=== PATIENT | male | born 1975 | race Caucasian/White ===

== ENCOUNTER 2016-12-28 18:38 | Inpatient (IN) | payer OTHER ==
[~2016-12-28] VITALS: Ht 172.7 cm; Wt 66.0 kg
[~2016-12-28 18:38] MED LIST: CYCLOBENZAPRINE5 MG PO; GLU10 PO; HUMULIN R100 U/1 M1 SC; LAC PO; LEVAQUIN250 MG PO; LEVAQUIN750 MG PO; LEVEMIR100 U/M1 SQ; METFORMIN HCL1000 MG PO; NEU300 PO
[2016-12-28 19:48] LABS: PLATELET COUNT 310 x10^3mcL (130-400); RED CELL DISTRIBUTION WIDTH 13.2 % (11.5-14.5)
[2016-12-28 19:58] LABS: ALBUMIN 3.7 g/dL (3.4-5.0); BILIRUBIN TOTAL 0.7 mg/dL (0.20-1.00); CALCIUM 7.6 mg/dL (8.5-10.1); CREATININE SERUM 2.4 mg/dL (0.7-1.3); TOTAL PROTEIN, SERUM 6.7 g/dL (6.4-8.2)
[2016-12-28 20:00] LABS: BAND NEUTROPHIL 2 % (0-10); BASOPHIL 0 % (0-2); MONOCYTE 6 % (0-7); SEGMENTED NEUTROPHILS 84 % (37-75); rbc morphology (normal/abnorm) ABNORMAL (NORMAL)
[2016-12-28 20:03] LABS: POTASSIUM SERUM 7.6 mmol/L (3.5-5.1)
[2016-12-28 20:08] LABS: CK-MB 21.4 ng/mL (0-3.6)
[2016-12-28 20:29] LABS: CARBON DIOXIDE 6.4 mmol/L (21-32)
[2016-12-28 22:22] LABS: UA SPECIFIC GRAVITY 1.015 (1.005-1.035); microscopic required? YES; urine erythrocyte 3+ (NEGATIVE)
[2016-12-28 22:25] LABS: AMPHETAMINE QUAL UR NONE DETECTED (NEG <=1000)
[2016-12-28 22:33] LABS: CHOLESTEROL/HDL RATIO 4.1
[2016-12-28 22:42] LABS: FREE THYROXINE INDEX 1.9 ug/dL (1.4-4.5); T3 TOTAL 0.33 ng/mL; T4(THYROXINE) 5.2 ug/dL (4.7-13.3)
[2016-12-28 23:00] LABS: ALBUMIN 3.4 g/dL (3.4-5.0); BILIRUBIN TOTAL 0.7 mg/dL (0.20-1.00); CALCIUM 7.5 mg/dL (8.5-10.1); CREATININE SERUM 2.2 mg/dL (0.7-1.3)
[2016-12-28 23:16] LABS: TOTAL PROTEIN, SERUM 6.1 g/dL (6.4-8.2)
[2016-12-28 23:28] LABS: MAGNESIUM 2.3 mg/dL (1.8-2.4); PHOSPHOROUS 6.3 mg/dL (2.5-4.9)
[2016-12-28 23:41] LABS: CARBON DIOXIDE 5.4 mmol/L (21-32)
[2016-12-29 03:00] VITALS: BP 121/74
[2016-12-29 03:11] VITALS: BP 122/56
[2016-12-29 03:34] LABS: BASOPHIL % 0.2 % (0-2); PLATELET COUNT 274 x10^3mcL (130-400); RED CELL DISTRIBUTION WIDTH 12.4 % (11.5-14.5)
[2016-12-29 03:40] LABS: CALCIUM 7.8 mg/dL (8.5-10.1); CARBON DIOXIDE 10.1 mmol/L (21-32); CREATININE SERUM 1.8 mg/dL (0.7-1.3); MAGNESIUM 1.9 mg/dL (1.8-2.4); PHOSPHOROUS 2.9 mg/dL (2.5-4.9); POTASSIUM SERUM 4.3 mmol/L (3.5-5.1)
[2016-12-29 07:20] VITALS: BP 124/73
[2016-12-29 07:20] LABS: CALCIUM 7.5 mg/dL (8.5-10.1); CARBON DIOXIDE 19.8 mmol/L (21-32); CREATININE SERUM 1.5 mg/dL (0.7-1.3); MAGNESIUM 1.7 mg/dL (1.8-2.4); PHOSPHOROUS 1.5 mg/dL (2.5-4.9); POTASSIUM SERUM 3.7 mmol/L (3.5-5.1)
[2016-12-29 07:42] VITALS: Ht 172.7 cm; Wt 66.0 kg
[2016-12-29 11:30] VITALS: BP 105/61
[2016-12-29 12:11] LABS: CALCIUM 7.4 mg/dL (8.5-10.1); CARBON DIOXIDE 26.2 mmol/L (21-32); CREATININE SERUM 1.4 mg/dL (0.7-1.3); POTASSIUM SERUM 3.7 mmol/L (3.5-5.1)
[2016-12-29 15:29] LABS: CALCIUM 7.5 mg/dL (8.5-10.1); CARBON DIOXIDE 26.5 mmol/L (21-32); CHLORIDE SERUM 102 mmol/L (98-107); CREATININE SERUM 1.2 mg/dL (0.7-1.3); GFR1 > 60 mL/min; GLUCOSE SERUM 142 mg/dL (74-106); POTASSIUM SERUM 3.6 mmol/L (3.5-5.1); SODIUM SERUM 135 mmol/L (136-145)
[2016-12-29 16:00] VITALS: BP 114/64
[2016-12-29 20:00] VITALS: BP 111/60
[2016-12-30] VITALS (10 sets, daily range): BP systolic 115–132; BP diastolic 59–82
[2016-12-30 05:07] LABS: CALCIUM 7.6 mg/dL (8.5-10.1); CARBON DIOXIDE 28.7 mmol/L (21-32); CHLORIDE SERUM 104 mmol/L (98-107); GFR1 > 60 mL/min; GLUCOSE SERUM 76 mg/dL (74-106); MAGNESIUM 1.9 mg/dL (1.8-2.4); PHOSPHOROUS 1.8 mg/dL (2.5-4.9); POTASSIUM SERUM 3.5 mmol/L (3.5-5.1); SODIUM SERUM 138 mmol/L (136-145)
[2016-12-30 05:08] LABS: BASOPHIL % 0.3 % (0-2); PLATELET COUNT 209 x10^3mcL (130-400); RED CELL DISTRIBUTION WIDTH 13.2 % (11.5-14.5)
[2016-12-31 05:55] LABS: BASOPHIL % 0.4 % (0-2); PLATELET COUNT 176 x10^3mcL (130-400); RED CELL DISTRIBUTION WIDTH 13.4 % (11.5-14.5)
[2016-12-31 06:08] LABS: CALCIUM 7.6 mg/dL (8.5-10.1); CARBON DIOXIDE 30.8 mmol/L (21-32); CHLORIDE SERUM 103 mmol/L (98-107); CREATININE SERUM 0.8 mg/dL (0.7-1.3); GFR1 > 60 mL/min; GLUCOSE SERUM 170 mg/dL (74-106); PHOSPHOROUS 2.3 mg/dL (2.5-4.9); POTASSIUM SERUM 3.3 mmol/L (3.5-5.1); SODIUM SERUM 139 mmol/L (136-145)
[2016-12-31 06:11] LABS: ALBUMIN 2.7 g/dL (3.4-5.0)
[2016-12-31 06:19] VITALS: BP 117/67
[2016-12-31 10:23] VITALS: BP 117/75
[2016-12-31 18:17] VITALS: BP 124/79
[2016-12-31 20:28] VITALS: BP 131/79
[2017-01-01 05:31] VITALS: BP 136/82
[2017-01-01 05:39] LABS: BASOPHIL % 0.6 % (0-2); PLATELET COUNT 194 x10^3mcL (130-400); RED CELL DISTRIBUTION WIDTH 13.3 % (11.5-14.5)
[2017-01-01 05:57] LABS: CALCIUM 8.2 mg/dL (8.5-10.1); CARBON DIOXIDE 30.9 mmol/L (21-32); CHLORIDE SERUM 106 mmol/L (98-107); CREATININE SERUM 0.7 mg/dL (0.7-1.3); GFR1 > 60 mL/min; GLUCOSE SERUM 108 mg/dL (74-106); PHOSPHOROUS 3.5 mg/dL (2.5-4.9); POTASSIUM SERUM 3.7 mmol/L (3.5-5.1); SODIUM SERUM 144 mmol/L (136-145)
[2017-01-01 09:44] VITALS: BP 132/80
[2017-01-01] MEDS ORDERED: METFORMIN HCL1000 MG PO (14:44)
[2017-01-01] MEDS ORDERED: THERA TABS1 TAB PO (14:45)
[2017-01-01] MEDS ORDERED: BACTROBAN21 (14:50)
[2017-01-01] MEDS ORDERED: HIB240 TP (14:50)
[2017-01-01 15:17] VITALS: BP 132/80
== END 2017-01-01 15:48 | disposition home or self-care (01) | DRG 420 ==
LOC: ED 18:38 → IC 12-29 00:13 → DU 12-29 00:13 → MU 12-29 00:13 → IC 12-29 00:18 → DU 12-30 13:56 → MU 12-30 21:19
PROVIDERS: Emergency Medicine; Family Medicine; ADMIT Family Medicine
PROC: 05HM33Z Insertion of Infusion Device into Right Internal Jugular Vein, Percutaneous Approach (ICD-10-PCS; principal; 2016-12-29)
PROC: B543ZZA Ultrasonography of Right Jugular Veins, Guidance (ICD-10-PCS; 2016-12-29)
DX: E13.10 Other specified diabetes mellitus with ketoacidosis without coma (principal); N17.0 Acute kidney failure with tubular necrosis; E43 Unspecified severe protein-calorie malnutrition; K85.90 Acute pancreatitis without necrosis or infection, unspecified; M62.82 Rhabdomyolysis; E87.8 Other disorders of electrolyte and fluid balance, not elsewhere classified; E83.39 Other disorders of phosphorus metabolism; E87.5 Hyperkalemia; E87.1 Hypo-osmolality and hyponatremia; F12.10 Cannabis abuse, uncomplicated; E78.1 Pure hyperglyceridemia; R31.9 Hematuria, unspecified; Z79.4 Long term (current) use of insulin; Z68.22 Body mass index [BMI] 22.0-22.9, adult; Z79.84 Long term (current) use of oral hypoglycemic drugs; Z91.14 Patient's other noncompliance with medication regimen; K52.9 Noninfective gastroenteritis and colitis, unspecified; E11.65 Type 2 diabetes mellitus with hyperglycemia; E11.51 Type 2 diabetes mellitus with diabetic peripheral angiopathy without gangrene; R82.4 Acetonuria; E87.6 Hypokalemia; E83.51 Hypocalcemia; E02 Subclinical iodine-deficiency hypothyroidism; Z83.3 Family history of diabetes mellitus; Z82.49 Family history of ischemic heart disease and other diseases of the circulatory system; F17.210 Nicotine dependence, cigarettes, uncomplicated
CPT/HCPCS: 36556; 36600; 80307; 83880; 84439; G0480; J1642; J1815; J2060; J2405; J2543; J3475; J3490; J7030; J7040; Q0092

== ENCOUNTER 2017-04-27 00:13 | Emergency (ER) | payer OTHER ==
[~2017-04-27 00:13] MED LIST changes: +BACTROBAN21; +HIB240 TP; +THERA TABS1 TAB PO
[2017-04-27 00:49] LABS: BASOPHIL % 1.4 % (0-2); PLATELET COUNT 238 x10^3mcL (130-400); RED CELL DISTRIBUTION WIDTH 13.2 % (11.5-14.5)
[2017-04-27 01:03] LABS: CALCIUM 8.4 mg/dL (8.5-10.1); CARBON DIOXIDE 24.3 mmol/L (21-32); CHLORIDE SERUM 100 mmol/L (98-107); CREATININE SERUM 1.1 mg/dL (0.7-1.3); GFR1 > 60 mL/min; GLUCOSE SERUM 278 mg/dL (74-106); POTASSIUM SERUM 4.2 mmol/L (3.5-5.1); SODIUM SERUM 138 mmol/L (136-145)
[2017-04-27 01:08] LABS: ALBUMIN 3.6 g/dL (3.4-5.0); ALKALINE PHOSPHATASE 79 U/L (46-116); ALT/SGPT 30 U/L (16-63); AMYLASE 34 U/L (25-115); AST/SGOT 20 U/L (15-37); BILIRUBIN TOTAL 0.92 mg/dL (0.20-1.00); LIPASE 70 IU/L (73-393); TOTAL PROTEIN, SERUM 7.3 g/dL (6.4-8.2)
[2017-04-27 01:36] LABS: microscopic required? YES; urine erythrocyte NEGATIVE (NEGATIVE)
[2017-04-27 01:41] LABS: AMPHETAMINE QUAL UR NONE DETECTED (NEG <=1000)
[2017-04-27 03:55] VITALS: BP 131/75
== END 2017-04-27 03:55 | disposition home or self-care (01) ==
LOC: ED 00:13
PROVIDERS: Emergency Medicine
DX: B34.9 Viral infection, unspecified (principal); E11.43 Type 2 diabetes mellitus with diabetic autonomic (poly)neuropathy; K31.84 Gastroparesis; Z79.4 Long term (current) use of insulin; Z79.84 Long term (current) use of oral hypoglycemic drugs; E11.40 Type 2 diabetes mellitus with diabetic neuropathy, unspecified
CPT/HCPCS: 83880; J1885; J2765; J7030; J8597

== ENCOUNTER 2017-04-27 22:57 | Inpatient (IN) | payer OTHER ==
[~2017-04-27] VITALS: Ht 170.2 cm; Wt 66.0 kg
--- NOTE | 2017-04-27 23:06 | NUR ---
REC'D A 41/M IN RM 8 BIBA WITH C/O VOMITING SINCE THE MORNING. [place] [facility] [place]IL[place]. HX OF DM. PER MEDIC, WITNESSED POSTURAL HTN, BLOOD GLUCOSE 262. PT AAOX4, RESP EVEN AND UNLABORED. ON CM. CALL LIGHT WITHIN REACH, WILL CONTINUE TO MONITOR.
[2017-04-27 23:47] LABS: BASOPHIL % 0.2 % (0-2); PLATELET COUNT 249 x10^3mcL (130-400); RED CELL DISTRIBUTION WIDTH 13.2 % (11.5-14.5)
[2017-04-28] VITALS (7 sets, daily range): BP systolic 104–148; BP diastolic 62–91
[2017-04-28 00:11] LABS: CARBON DIOXIDE 21.2 mmol/L (21-32); CHLORIDE SERUM 97 mmol/L (98-107); CREATININE SERUM 1.1 mg/dL (0.7-1.3); GFR1 > 60 mL/min; GLUCOSE SERUM 288 mg/dL (74-106); POTASSIUM SERUM 4.6 mmol/L (3.5-5.1); SODIUM SERUM 134 mmol/L (136-145)
[2017-04-28 00:16] LABS: ALBUMIN 3.4 g/dL (3.4-5.0); ALKALINE PHOSPHATASE 80 U/L (46-116); ALT/SGPT 24 U/L (16-63); AST/SGOT 15 U/L (15-37); BILIRUBIN TOTAL 1.2 mg/dL (0.20-1.00); LIPASE 64 IU/L (73-393)
--- NOTE | 2017-04-28 00:38 | NUR ---
ADMINISTERED 5 UNIT HUMULIN REGULAR. PLEASE SEE EMAR.
[2017-04-28 00:47] LABS: microscopic required? YES; urine erythrocyte NEGATIVE (NEGATIVE)
--- NOTE | 2017-04-28 01:41 | NUR ---
PT ASLEEP ON GURNEY, RESP EVEN AND UNLABORED. WILL CONTINUE TO MONITOR.
--- NOTE | 2017-04-28 01:50 | NUR ---
BLOOD GLUCOSE: 209. DR MCKNIGHT MADE AWARE.
[2017-04-28 02:34] LABS: CHOLESTEROL/HDL RATIO 2.7; MAGNESIUM 1.7 mg/dL (1.8-2.4); PHOSPHOROUS 3.4 mg/dL (2.5-4.9)
--- NOTE | 2017-04-28 02:35 | NUR ---
PT ASLEEP ON GURNEY, RESP EVEN AND UNLABORED. WILL CONTINUE TO MONITOR.
[2017-04-28 02:40] LABS: T3 TOTAL 0.4 ng/mL
[2017-04-28 02:48] LABS: FREE T4 1.37 ng/dL (0.76-1.46); FREE THYROXINE INDEX 3.1 ug/dL (1.4-4.5); T4(THYROXINE) 8.6 ug/dL (4.7-13.3)
--- NOTE | 2017-04-28 02:54 | NUR ---
DR MCKEE AT BEDSIDE FOR CENTRAL LINE INSERTION.
--- NOTE | 2017-04-28 03:19 | NUR ---
REPORT GIVEN TO ALESIA MUJICA TO ASSUME CARE OF THE PT.
--- NOTE | 2017-04-28 04:05 | NUR ---
PT ARRIVED FROM ER VIA [facility] ACCOMPANIED BY RHEUMATOLOGY SPECIALIST AND SIZE CHANGER. PT PUT ON MONITOR. WILL CONTINUE TO MONITOR.
[2017-04-28 04:13] LABS: CALCIUM 7.8 mg/dL (8.5-10.1); CARBON DIOXIDE 17.8 mmol/L (21-32); CHLORIDE SERUM 101 mmol/L (98-107); GFR1 > 60 mL/min; GLUCOSE SERUM 254 mg/dL (74-106); MAGNESIUM 1.4 mg/dL (1.8-2.4); PHOSPHOROUS 2.7 mg/dL (2.5-4.9); POTASSIUM SERUM 4.7 mmol/L (3.5-5.1); SODIUM SERUM 133 mmol/L (136-145)
--- NOTE | 2017-04-28 04:36 | NUR ---
PAGED DR SHEPHERD, AWAITING CALL BACK FOR FURTHER ORDERS PER DKA PROTOCOL.
--- NOTE | 2017-04-28 05:35 | NUR ---
DR OLIVAS AT BEDSIDE. UPDATES PROVIDED. WILL CONTINUE TO MONITOR.
[2017-04-28 05:43] LABS: BILIRUBIN DIRECT 0.21 mg/dL (0.0-0.2); BILIRUBIN TOTAL 0.91 mg/dL (0.20-1.00); TOTAL PROTEIN, SERUM 6.3 g/dL (6.4-8.2)
[2017-04-28 05:44] LABS: ALBUMIN 3.1 g/dL (3.4-5.0)
--- NOTE | 2017-04-28 07:11 | NUR ---
RECIEVED REPORT EVIE MUJICA RN AT BEDSIDE. WILL RESUME ALL CARE.
--- NOTE | 2017-04-28 07:30 | NUR ---
BLOOD SUGAR IS 192 PER DKA PROTOCOL BLOOD SUGAR <200 FLUID IS TO BE SWTICH D51/2NS 150ML/HR. INSULIN DRIP IS SET TO 3.3ML/HR. WILL CONTINUE TO MONITOR AND NOTFIY RESIDENT. BED AT LOW AND CALL LIGHT WITHIN REACH.
--- NOTE | 2017-04-28 07:30 | NUR ---
REPORT GIVEN TO MIN RN. WILL ENDORSE PT CARE.
--- NOTE | 2017-04-28 07:45 | NUR ---
PT IS AAOX2 ABLE TO FOLLOW VERBAL ORDERS AND ANSWER QUESTIONS APPROPRIATELY. 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 L EYE REACTIVE TO LIGHT 3MM, BRISK. PT STATES, " I CAN'T SEE FROM MY R EYE AND ABLE TO SEE WITH L EYE WHEN OBJECTS ARE CLOSE, WHEN I SEE FAR I SEE SHADOWS". DENIES PORTER AND DIZZINESS. PT HAS CHILLS AND IS SHAKING, TEMPT 98.7 AX. PT ON RA SYMMETRIC CHEST RISE AND UNLABORED BREATHING. WHEEZING THROUGHOUT LUNG HERRERA ON EXPIRATORY. CAP REFILL <3 SEC, NO EDEMA NOTED. S1S2 PRESENT AND DENIES CHEST PAIN. SKIN INTACT. DRINESS TO BLE. BS ACTIVE X4, ABD SOFT AND FLAT. NONTENDER PALPATION TO ABD, NO SIGNS OF N/V. RIJ INTACT AND PATENT, DRESSIND CDI. PT IS ABLE TO VOID. PT DENIES ANY PAIN. PT IS CALM. BED AT LOW AND CALL LIGHT WTIHIN REACH.
--- NOTE | 2017-04-28 08:28 | NUR ---
BLOOD SUGAR IS 181, INSULIN REMAINS AT 3.3ML/HR AND D51/2NS AT 150ML/HR.
--- NOTE | 2017-04-28 08:43 | NUR ---
SET UP WATER AND BASIN FOR ORAL CARE AND MORNING CARE. PT ABLE TO BRUSH TEETH AT BEDSIDE BY SELF. PT VOIDED 600ML OF CLEAR YELLOW URINE. UA IS SENT TO LAB. GAVE PT SANDWHICH AND APPLE JUICE PER DKA PROTOCOL PT ABLE TO TOLERATE PO IS ABLE TO BE FEED AT THIS TIME. BED AT LOW AND CALL LIGHT WITHIN REACH.
--- NOTE | 2017-04-28 08:55 | NUR ---
AT BEDSIDE ASSESSING PT AND UPDATING PLAN OF CARE.
--- NOTE | 2017-04-28 09:00 | NUR ---
PT DRINK ONE APPLE JUICE AND ONE NON FAT MILK AND ATE HALF A SANDWHICH. TOLERATING FOOD WELL. NO SIGNS OF SOB OR ACUTE DISTRES.
[2017-04-28 09:12] LABS: ALKALINE PHOSPHATASE 64 U/L (46-116); ALT/SGPT 21 U/L (16-63); AST/SGOT 17 U/L (15-37); BILIRUBIN TOTAL 0.91 mg/dL (0.20-1.00); CALCIUM 7.5 mg/dL (8.5-10.1); CARBON DIOXIDE 17.6 mmol/L (21-32); CHLORIDE SERUM 104 mmol/L (98-107); CREATININE SERUM 1.2 mg/dL (0.7-1.3); GFR1 > 60 mL/min; GLUCOSE SERUM 185 mg/dL (74-106); POTASSIUM SERUM 3.8 mmol/L (3.5-5.1); SODIUM SERUM 132 mmol/L (136-145)
[2017-04-28 09:23] LABS: ALBUMIN 2.8 g/dL (3.4-5.0)
--- NOTE | 2017-04-28 09:26 | NUR ---
BLOODUGAR 150, INSULIN DRIP IS SET OFF AT THIS TIME PER DKA PROTOCOL. ANION GAP IS 10.[address] AMATO IS AWARE.
[2017-04-28 09:39] LABS: AMPHETAMINE QUAL UR NONE DETECTED (NEG <=1000)
--- NOTE | 2017-04-28 09:52 | NUR ---
SENIOR CASE MANAGER AT BEDSIDE FOR ULTRASOUND OF VENOUS. PT TOLERATING PROCEDURE WELL.
--- NOTE | 2017-04-28 11:26 | NUR ---
DR. AMATO AT BEDSIDE ASSESSING PT.
--- NOTE | 2017-04-28 11:26 | NUR ---
ORAL TEMPT 103, PT C/O OF DIZZINESS AND GENERAL BODY ACHE. WILL MEDICATE PER EMAR. DR. AMATO IS AWARE. STARTED COOLING MEASURES AND PUT COLD COMPRESS ON BACK OF NECK AND UNDER BL ARMPITS. REMOVED ALL BLANKET. BED AT LOW AND CALL LIGHT WITHIN REACH.
--- NOTE | 2017-04-28 11:59 | NUR ---
POLICE GUARD JOHNATHAN AT BEDSIDE FOR BEDSIDE ECHO.
--- NOTE | 2017-04-28 12:36 | NUR ---
TEMPT 101.3 PT IS SHAKING FROM CHILLS AND REPORTING 4/10 GENERAL BODY ACHE. WILL MEDICATE PER EMAR.
--- NOTE | 2017-04-28 13:02 | NUR ---
SET LUNCH TRAY AT BEDSIDE. PT ABLE TO FEED SELF. BED AT LOW AND CALL LIGHT WITHIN REACH.
--- NOTE | 2017-04-28 13:12 | NUR ---
PT HAS LITTLE APPITITE AND TOOK A FEW BIT OF HAMBURGER AND 2 JELLOS. NO SIGNS OF N/V.
--- NOTE | 2017-04-28 15:00 | NUR ---
Initial Nutrition Assessment Dx: Sepsis, early DKA PMHx: DM, neuropathy and retinal neuropathy PSHx:None Labs: (04/27) Lactic acid:2.2H (04/28) Na:132L, BH trending down, Alb:2.1L, Ca:7.5L, M.4L, A1c:12H, H/H:12.6/39L Meds: Mg sulfate, Humulin, NS IVF, Theragran, Diet:CCHO PO Intake:pt was just advanced to [facility] this afternoon, was previously NPO 2/2 DKA. Ht: 67in, 5'7 Wt: 155#, 70.3kg BMI:24.3kg/m2 (normal weight) IBW: 148#,67kg %IBW: 105% UBW:150-155# per pt Age:41 Food Allergies:No Skin: intact Americo:19 Edema:None GI: Last BM Nursing trigger: N/V/D>3days, unintentional wt loss>10# past month, admitted with potential risk factor. Pt came to the ER the day before c/o PORTER and vomitting x2 days and was diagnosed with viral syndrome and gastroparesis. Pt came back with DKA, likely 2/2 sepsis, per MD note. Per bed huddle 04/28, pt is out of DKA and can transfer upstairs to telemetry. During visit, pt was very lathargic/drowsy. Per RN, pt drowsy due to pain meds and has poor appetite (only drank his juice and ate Jello). Problem with: N: No V: No D:No C:No Problems with: Chewing:No Swallowing:No Current appetite: poor Recent wt change:no %wt change:0% Vitamin/Supplement use:no Special diet at home:No. Pt follows regualr diet at home. Physical activity:No Education: Pt requested diabetic education due to not knowing what to eat. Pt wanted a diabetic meal plan. Went over whole wheat options for carb choices with pt and adding protein to carbohydrates to help stabalize blood sugar. Also provided pt with handout on gastroparsis. Pt was lethargic and would fall in and out of sleep. Left education at bed side and pt said he will go over it later when he's not drowsy. Estimated Nutritional Needs Based on actual body weight 70kg Energy: 1750-2100kcal/d (25-30kcal/kg for sepsis) Protein: 70-84g/d (1-1.2g/kg for sepsis) Fluid: 1750-2100ml/d (1 ml/kcal) or per doctor Nutrition Diagnosis 1. Altered nutrition labs related to pt admitted with DKA as evidenced by B, A1c:12. 2. Increased nutrient needs related to increased metabolic demands as evidenced by pt with sepsis (lactic acid:2.2H, trending down) and WBC:16.8H 3. Inadequate energy intake related to pt being drowsy as evidenced PO intake:<50%x 1meal. Intervention 1.Recommend Boost Plus Glucose Control BID to help improve PO intake. Monitor/Evaluate Goal: PO intake at least 75% of estimated needs from meals and supplement. Monitor: PO intake, Labs, GI function F/U in 3-5 days as moderate risk:05/01-15
--- NOTE | 2017-04-28 15:03 | NUR ---
Recommend Boost Plus Glucose Control BID to help improve PO intake (provides 500kcal and 28g pro)
--- NOTE | 2017-04-28 15:34 | NUR ---
PT IS AAOX4 ABLE TO FOLLOW VERBAL COMMANDS AND ABLE TO COMMUNICATE NEEDS. ABLE TO ANSWER QUESTIONS APPROPRIATELY. BLINDNESS TO R CLOUDY EYE, PUPIL NO REACTIVE TO LIGHT. L PUPIL REACTIVE TO LIGHT 3MM, BRISK. PT DENIES PORTER AND DIZZINESS. DIMINISH AND EXPIRATORY WHEEZING THROUGHOUT LUNG HERRERA. SYMMETRIC CHEST RISE. NO SIGNS OF ACUTE DISTRESS. NO EDEMA NOTED, CAP REFILL <3 SEC. S1S2 PRESENT AND DENIES CHEST PAIN. SKIN INTRACT. BS ACTIVE X4. ABD FLAT AND SOFT. NO SIGNS OF N/V. PT ABLE TO VOID CLAER YELLOW URINE. RIJ INTACT AND PATENT, DRESSING CDI. TRACHEAL AT MIDLINE. PT DENIES ANY DISCOFORT AND PAIN. BED AT LOW AND CALL LIGHT WITHIN REACH. FAMILY AT BEDSIDE.
[2017-04-28 16:46] LABS: ALBUMIN 2.7 g/dL (3.4-5.0); ALKALINE PHOSPHATASE 59 U/L (46-116); ALT/SGPT 21 U/L (16-63); AST/SGOT 16 U/L (15-37); BILIRUBIN TOTAL 1.09 mg/dL (0.20-1.00); CALCIUM 7.7 mg/dL (8.5-10.1); CARBON DIOXIDE 25.4 mmol/L (21-32); CHLORIDE SERUM 105 mmol/L (98-107); CREATININE SERUM 1.1 mg/dL (0.7-1.3); GFR1 > 60 mL/min; GLUCOSE SERUM 293 mg/dL (74-106); POTASSIUM SERUM 4.4 mmol/L (3.5-5.1); SODIUM SERUM 138 mmol/L (136-145); TOTAL PROTEIN, SERUM 5.8 g/dL (6.4-8.2)
--- NOTE | 2017-04-28 17:21 | NUR ---
GAVE REPORT TO KANDIS DUMAS OVER PHONE. PT WILL BE TRANSFER AFTER HE'S DONE EATING DINNER. PT IS AAOX4 ABLE TO FOLLOW VERBAL COMMANDS AND COMMUNICATE NEEDS AND ANSWER QUESTIONS APPROPRIATELY. DENIES DIZZINESS AND PORTER. PT ON RA NO SIGNS OF SOB OR ACUTE DISTRESS. NO EDEMA. DENIES CHEST PAIN. NO SIGNS OF N/V. RIJ INTACT AND PATENT. PT IS ABLE TO VOID CLEAR YELLOW URINE. PT DENIES ANY DISCOMFORT AT THIS TIME. FAMILY AT BEDSIDE. WILL TRANSFER PT BY WHEELCHAIR.
--- NOTE | 2017-04-28 17:55 | NUR ---
ARRIVED FROM ICU WITH MIN RN AT 1745. TELE # 15 SR. VS'S STABLE. NO SOB. AAO TIMES 4. COOPERATIVE. TEMP 97.6, PT IS SHIVERING, WE WILL WATCH FOR SPIKE IN TEMPERATURE. O2 SAT ON RA 99%. NO C/O PAIN.
--- NOTE | 2017-04-28 19:34 | NUR ---
AAOX4. TELE 15, HR 72. LUNG SOUNDS CTA ON RA. ABD IS SOFT, ROUND, NON-TENDER. 150 NS INFUSING INTO RIJ. THE BED IS IN THE LOWEST POSITION AND CALL LIGHT IS WITHIN REACH, 2X RAILS UP. PT STATES HE IS A LITTLE COLD, DOES NOT WISH FOR THE HEATER TO BE ON, GOT A BLANKET FOR THE PT INSTEAD. WILL CONTINUE TO MONITOR.
--- NOTE | 2017-04-28 20:55 | NUR ---
PT STATED THE LAST TIME HE WAS IN THE HOSPITAL AND RECIEVED INSULIN WHEN HE WAS IN THE 150 RANGE (CURRENTLY 152) HIS GLUCOSE DROPPED TO 20-30'S. PT REFUSED INSULIN.
[2017-04-28 21:08] LABS: ALKALINE PHOSPHATASE 60 U/L (46-116); ALT/SGPT 19 U/L (16-63); AST/SGOT 10 U/L (15-37); BILIRUBIN TOTAL 1.04 mg/dL (0.20-1.00); CALCIUM 7.6 mg/dL (8.5-10.1); CARBON DIOXIDE 25.7 mmol/L (21-32); CHLORIDE SERUM 106 mmol/L (98-107); GFR1 > 60 mL/min; GLUCOSE SERUM 134 mg/dL (74-106); POTASSIUM SERUM 4.1 mmol/L (3.5-5.1); SODIUM SERUM 140 mmol/L (136-145)
[2017-04-28 21:09] LABS: ALBUMIN 2.6 g/dL (3.4-5.0); TOTAL PROTEIN, SERUM 5.7 g/dL (6.4-8.2)
--- NOTE | 2017-04-29 00:52 | NUR ---
PT RESTING COMFORTABLY. EVEN, UNLABORED BREATHING. BED IN LOWEST POSITION AND CALL LIGHT IS WITHIN REACH. WILL CONTINUE TO MONITOR.
--- NOTE | 2017-04-29 01:38 | NUR ---
PT STATES PORTER 05/30. UNABLE TO MEDICATE WITH ANY OF THE CURRENT MEDICATIONS BECAUSE OF TIME FRAME LIMITATIONS. DR. WOODY AWARE. AWAITING ORDERS.
--- NOTE | 2017-04-29 03:52 | NUR ---
I WAS GOING TO GIVE 12 U REG INSULIN PER SLIDING SCALE PROTOCOL. PT STATED HE ONLY WANTED 6 UNITS REG INSULIN. TRIED TO PERSUADE THE PT THAT OUR PROTOCOL STATES THAT 12 UNITS WOULD BE BED. PT STATES HE WENT DOWN VERY LOW IN THE PAST AND WANTS ONLY 6. DR. WOODY PAGEGATED ABOUT THE MATTER.
[2017-04-29 05:53] VITALS: BP 120/79
--- NOTE | 2017-04-29 06:09 | NUR ---
PT IS RESTING IN BED. ALL NEEDS HAVE BEEN MET THROUGHOUT THE NIGHT. THE BED IS IN THE LOWEST POSITION, 2X RAILS UP, THE CALL LIGHT IS WITHIN REACH. WILL ENDORSE TO MORNING SHIFT.
[2017-04-29 06:38] LABS: BASOPHIL % 0.2 % (0-2); PLATELET COUNT 231 x10^3mcL (130-400); RED CELL DISTRIBUTION WIDTH 13.3 % (11.5-14.5)
[2017-04-29 07:01] LABS: CALCIUM 7.6 mg/dL (8.5-10.1); CARBON DIOXIDE 23.8 mmol/L (21-32); CHLORIDE SERUM 105 mmol/L (98-107); CREATININE SERUM 0.9 mg/dL (0.7-1.3); GFR1 > 60 mL/min; GLUCOSE SERUM 213 mg/dL (74-106); PHOSPHOROUS 1.9 mg/dL (2.5-4.9); POTASSIUM SERUM 3.8 mmol/L (3.5-5.1); SODIUM SERUM 139 mmol/L (136-145)
--- NOTE | 2017-04-29 08:07 | NUR ---
AAO TIMES 4. TELE # 15 SR. VS'S STABLE. NO SOB. LUNGS CTA. O2 SAT ON RA 96%. BS'S ACTIVE TIMES 4. MORRIS WITH GENERALIZED WEAKNESS. PERIPHERAL PULSES PALPABLE. NO EDEMA. C/O HEADACHE, WILL MEDICATE FOR PAIN WHEN IT IS DUE AGAIN. IV SITE TO [facility] PATENT, CDI. DC'D SL TO RAC.
--- NOTE | 2017-04-29 08:15 | NUR ---
PT IS AWARE THAT HIS BLOOD SUGAR LEVEL IS 216, BUT HE REFUSES REG INSULIN COVERAGE BECAUSE HE SAYS HIS BLOOD SUGAR WILL DROP. HE IF REFUSING BREAKFAST. HE STATES HE IS NAUSEATED, I WILL MEDICATE HIM FOR NAUSEA.
--- NOTE | 2017-04-29 08:17 | NUR ---
THERE IS NO ORDER FOR MEDICATION FOR NAUSEA, I WILL NOTIFY MD DURING ROUNDS THIS AM.
--- NOTE | 2017-04-29 08:25 | NUR ---
PT SHIVERING. TYMPANIC TEMP 99.4.
[2017-04-29 09:08] VITALS: BP 154/87
--- NOTE | 2017-04-29 10:05 | NUR ---
MEDICAL ROUNDS OCCURED AT [address] MARROQUIN AND THE MEDICINE TEAM. PT C/O NAUSEA, AND PAIN. THEY WILL ORDER MEDICATION FOR BOTH NAUSEA AND PAIN. DR AMATO WAS NOITIFED THAT PT IS C/O NAUSEA, PAIN AND WAS REFUSING THE SLIDING SCALE REG INSULIN. DR AMATO ORDERED D5NS AND FOR HIM TO GET HIS LEVEMIR INSULIN.
--- NOTE | 2017-04-29 10:33 | NUR ---
PT C/O NAUSEA BUT PREVIOUS MEDICATION DIDNT WORK FOR NAUSEA HE STATED. NO MEDS FOR NAUSEA EXCEPT FOR ZOFRAN THAT WAS DC'D IS ON EMAR. DR AMATO ORDERED PHENERGAN 12.5 MG IVP. PHENERGAN 12.5 WAS GIVEN DILUTED IN 10 CC NS AND GIVE AT 1033. AT 1133 PT STATES HE FEELS BETTER BUT IS VERY SLEEPY. BLOOD SUGAR WAS 216.
--- NOTE | 2017-04-29 11:05 | NUR ---
PT'S SKIN IS HOT, I TOOK TYMPANIC TEMPERATURE, IT WAS 102. I NOTIFIED DR AMATO. I GAVE TYLENOL DR AMATO DIRECTED AT 1107.
[2017-04-29 13:03] VITALS: BP 128/74
--- NOTE | 2017-04-29 13:07 | NUR ---
TEMP NOW 98.8. TYLENOL WAS GIVEN AT 1107 FOR TEMP OF 102 AT 1105.
--- NOTE | 2017-04-29 16:39 | NUR ---
DR AMATO AWARE THAT PT REFUSES REG IN SLIDING SCALE OF 3 UNITS FOR BLOOD SUGAR OF 162. PT IS AFRAID HIS BLOOD SUGAR WILL GO LOW. IV CHANGED TO NS [address] CAAL ORDER, DR AMATO AWARE.
[2017-04-29 17:34] VITALS: BP 136/71
--- NOTE | 2017-04-29 17:57 | NUR ---
AAO TIMES 4. TELE # 15 SR 89. C/O HEADACHE, GAVE TORADOL IV ORDERED AT 1741. IV TO [facility] PATENT, CDI. COOPERATIVE. PT SLEEPING A LOT, AROUSABLE.
--- NOTE | 2017-04-29 19:18 | NUR ---
PT IS AAOX4, MOTHER AT BEDSIDE. PT DENIES ANY PAIN AT THIS TIME. TELE 15 NSR (74). LUNG SOUNDS ARE CTA ON RA. BOWEL SOUNDS PRESENT IN ALL 4 QUADRANTS. NO EDEMA NOTED, PULSES PRESENT. IV IN THE RIJ, INFUSING 70 ML/HR NS. BED IN LOWEST POSITION AND CALL LIGHT WITHIN REACH. WILL CONTINUE TO MONITOR.
--- NOTE | 2017-04-29 21:42 | NUR ---
FEVER OF 99.7. TYLENOL ADMINISTERED, COOLING MEASURES ACTIVATED. DR. WOODY PAGEGATED.
[2017-04-29 22:10] VITALS: BP 155/78
--- NOTE | 2017-04-29 22:15 | NUR ---
TEMP IS NOW 98.5. TYLENOL AND COOLING MEASURES EFFECTIVE.
[2017-04-30] VITALS (7 sets, daily range): BP systolic 133–165; BP diastolic 84–98
--- NOTE | 2017-04-30 00:03 | NUR ---
GLUCOSE 152. PT REFUSED 3 UNIT REG INSULIN COVERAGE.
--- NOTE | 2017-04-30 03:43 | NUR ---
DR. WOODY ORDERED TO GIVE 6 UNITS REG INSULIN.
--- NOTE | 2017-04-30 05:03 | NUR ---
BP 157/86(110) PAGEGATED DR WOODY.
--- NOTE | 2017-04-30 05:44 | NUR ---
PT IS RESTING IN BED. ALL NEEDS HAVE BEEN MET THROUGHOUT THE NIGHT. 600 ML URINE FROM URINAL. NO ACUTE DISTRESS NOTED. CALL LIGHT WITHIN REACH. WILL ENDORSE TO MORNING SHIFT.
[2017-04-30 06:38] LABS: BASOPHIL % 0.5 % (0-2); PLATELET COUNT 265 x10^3mcL (130-400); RED CELL DISTRIBUTION WIDTH 13.3 % (11.5-14.5)
[2017-04-30 06:46] LABS: CALCIUM 7.9 mg/dL (8.5-10.1); CARBON DIOXIDE 28.4 mmol/L (21-32); CHLORIDE SERUM 102 mmol/L (98-107); CREATININE SERUM 0.8 mg/dL (0.7-1.3); GFR1 > 60 mL/min; GLUCOSE SERUM 185 mg/dL (74-106); MAGNESIUM 1.7 mg/dL (1.8-2.4); PHOSPHOROUS 2.7 mg/dL (2.5-4.9); POTASSIUM SERUM 3.4 mmol/L (3.5-5.1); SODIUM SERUM 138 mmol/L (136-145)
--- NOTE | 2017-04-30 07:20 | NUR ---
RECEIVED Pt. AAOX4 DENIES HEADACHE/DIZZINESS AT THIS TIME. RESPIRATIONS EVEN AND UNLABORED. DENIES PAIN/DISCOMFORT. DENIES N/V, NO DISTRESS NOTED. TELE IN PLACE HR 73 NSR. IVF RUNNING TO CENTRAL LINE AT RIGHT IJ CDI. BED LOW/LOCKED. CALL LIGHT IN REACH.
--- NOTE | 2017-04-30 08:38 | NUR ---
Pt. REFUSED LEVEMIR PER EMAR, DR. AMATO MADE AWARE.
--- NOTE | 2017-04-30 08:51 | NUR ---
Pt. C/O NUASEA PHENERGAN GIVEN IVP, Pt. WITH TEMP 100.6, COOLING MEASURES STARTED AND TYLENOL GIVEN WILL CONTINUE TO MONITOR.
--- NOTE | 2017-04-30 09:12 | NUR ---
MADE ROUNDS WITH DR. GHOTRA AND MEDICINE TEAM, NOTIFIED THAT Pt. TEMP OF 100.6 AND TYLENOL WAS GIVEN, CONTINUE WITH PLAN OF CARE AND Pt. AGREED. DR. AMATO ALSO NOTIFIED OF K LEVEL AT 3.4 AND MAGNESIUM AT 1.7.
--- NOTE | 2017-04-30 09:28 | NUR ---
PROOF MACHINE OPERATOR SUPERVISOR REPORTED THAT BP 165/95 HR 81. RECHECKED BP AT 163/85 HR 79 MAP 98. Pt. ALSO C/O GENERAL BODY PAIN 5/10 SCALE, TORADOL GIVEN IVP AND DR. AMATO NOTIFIED. WILL CONTINUE TO MONITOR Pt. Pt. MOTHER AT BEDSIDE.
--- NOTE | 2017-04-30 10:46 | NUR ---
RECHECKED Pt. TEMP AT 99.2 Pt. ALSO VERBALIZED RELIEF POST TORADOL AND DENIES N/V AT THIS TIME.
--- NOTE | 2017-04-30 12:09 | NUR ---
RECHECKED Pt. VSS BP 164/85 MAP [address] AMATO NOTIFIED.
--- NOTE | 2017-04-30 15:17 | NUR ---
Pt. APPEARS TO BE SLEEPING, RESPIRATIONS EVEN AND UNLABORED. NO SIGNS OF PAIN/DISCOMFORT. Pt. MOTHER AT BEDSIDE.
--- NOTE | 2017-04-30 16:53 | NUR ---
PHYSICAL THERAPY DAILY NOTES CO-SIGN All documentation done by the Operations Vocational Instructor for 04/30/17 has been reviewed. I agree with the documentation. Reviewed/Co-Signed by: Tiffanie Larson PT Documentation Done by: PHYSICAL THERAPY DAILY NOTES CO-SIGN All documentation done by the Operations Vocational Instructor for 04/30/17 has been reviewed. I agree with the documentation. Reviewed/Co-Signed by: Tiffanie Larson PT Documentation Done by:LAURITA GONZALEZ DEVELOPMENT ANALYST POC REVIEWED W/ DEVELOPMENT ANALYST; PROGRESSING W/ FUNC MOB; WILL BENEFIT W/ P.T.
--- NOTE | 2017-04-30 18:15 | NUR ---
Pt. C/O GENERAL BODY PAIN 7/10 SCALE, TORADOL IVP GIVEN WILL CONTINUE TO MONITOR.
--- NOTE | 2017-04-30 18:32 | NUR ---
Pt. AAOX4, RESPIRATIONS EVEN AND UNLABORED. NO DISTRESS NOTED AT THIS TIME. TELE IN PLACE. IVF RUNNING TO RIGHT IJ PATENT AND INTACT DSG CDI. GOOD APPETITE NOTED DURING DINNER. BED LOW/LOCKED. CALL LIGHT IN REACH.
--- NOTE | 2017-04-30 20:15 | NUR ---
PATIENT RESTING IN BED. BREATH SOUNDS DIMINISHED, RESPIRATION EVEN AND UNLABORED, ON ROOM AIR. ONGOING 0.9% NS AT 70 CC/HR INFUSING WELL AT THE RIGHT IJ TLC. VOIDING FREELY WITHOUT DIFFICULTY. GENERALIZED WEAKNESS NOTED. SKIN DRY AND INTACT. SCD'S TO BLE. DENIES PAIN AT THIS TIME. ON TELE #15. WILL CONTINUE TO MONITOR.
--- NOTE | 2017-05-01 06:30 | NUR ---
PATIENT RESTING IN BED. RESPIRATION EVEN AND UNLABORED. DENIES PAIN AT THIS TIME. RIJ TLC PATENT AND INTACT. ASSISTED WITH NEEDS. SAFETY OBSERVED. PLACED CALL LIGHT WITHIN REACH AT ALL TIMES.
[2017-05-01 06:32] VITALS: BP 156/86
[2017-05-01 06:44] LABS: BASOPHIL % 0.7 % (0-2); PLATELET COUNT 275 x10^3mcL (130-400); RED CELL DISTRIBUTION WIDTH 13.6 % (11.5-14.5)
[2017-05-01 07:33] LABS: CALCIUM 7.8 mg/dL (8.5-10.1); CARBON DIOXIDE 25.5 mmol/L (21-32); CHLORIDE SERUM 101 mmol/L (98-107); CREATININE SERUM 0.8 mg/dL (0.7-1.3); GFR1 > 60 mL/min; GLUCOSE SERUM 261 mg/dL (74-106); MAGNESIUM 1.6 mg/dL (1.8-2.4); POTASSIUM SERUM 4.1 mmol/L (3.5-5.1); SODIUM SERUM 139 mmol/L (136-145)
--- NOTE | 2017-05-01 08:00 | NUR ---
PT AWAKE ALERT AND ORIENTED X4 ABLE TO MAKE NEEDS KNOWN. TELE 15. PULSES EQUAL BILATERAL NO EDEMA NOTED. LUNGS DIMINISHED TO BLL, COMFORTABLE ON RA, DENIES SOB. PT STATES HE IS HAVING NAUSEA, WILL MEDICATE ACCORDING TO MAR. BOWEL TONES ACTIVE IN ALL QUADS. BRP. PT BLIND IN R EYE. DENIES PAIN AT THIS TIME. RIJ PATENT AND INFUSING. PT IS CALM AND COOPERATIVE WITH CARE. CALL LIGHT IN REACH.
[2017-05-01 09:27] VITALS: BP 150/91
--- NOTE | 2017-05-01 13:14 | NUR ---
PT RESTING IN BED NO SIGNS OF DISTRESS CALL LIGHT IN REACH WILL CONTINUE TO MONITOR.
--- NOTE | 2017-05-01 14:40 | NUR ---
PT RESTING IN BED DENIES PAIN AT THIS TIME, NO SIGNS OF DISTRESS CALL LIGHT IN REACH WILL CONTINUE TO MONITOR.
--- NOTE | 2017-05-01 17:49 | NUR ---
PT RESTING IN BED, STATES PAIN IS 8/10 TO NECK AND BACK WILL MEDICATE ACCORDING TO MAR.
--- NOTE | 2017-05-01 19:35 | NUR ---
REC'D PT FROM DAY NURSE. AAOX4. LAYING IN BED COMFORTABLY. DENIES PAIN AT THIS TIME. TELE # 15. PULSES ARE EVEN AND PALPABLE. LUNG SOUNDS ARE DIMINISHED BUT CTA. BREATH SOUNDS ARE EVEN AND UNLABORED. NO SOB. NO N/V. ABD IS SOFT AND ROUND. NO EDEMA NOTED. IV INTACT AND PATENT INFUSING AT 70 ML/HR. BED IN LOWEST POSITION. CALL LIGHT WITHIN REACH. WILL CONT TO MONITOR.
--- NOTE | 2017-05-01 20:40 | NUR ---
Pt IS COMPLAINING OF HEADACHE 9/10 ON THE PAIN SCALE. WILL BE GIVING PAIN MED.
[2017-05-01 20:52] VITALS: BP 154/92
--- NOTE | 2017-05-01 22:05 | NUR ---
Pt STATED THAT HE HAS NOT SLEPT GOOD FOR THE PAST NIGHTS. WILL BE GIVING AMBIEN.
--- NOTE | 2017-05-02 02:48 | NUR ---
Pt IS CURRENTLY ASLEEP AND RESTING WELL. NO SIGNS OF ACUTE DISTRESS NOTED. BREATH SOUNDS ARE EVEN AND UNLABORED. WILL CONT TO MONITOR.
[2017-05-02 05:25] VITALS: BP 132/83
--- NOTE | 2017-05-02 06:15 | NUR ---
PT SLEPT THROUGHOUT THE SHIFT. NO SIGNS OF DISTRESS OR SIGNIFICANT CHANGES NOTED. NO SOB, NO N/V/D. BREATH SOUNDS ARE EVEN AND UNLABORED. ALL NEEDS MET AND ATTENDED TO. IV INTACT AND PATENT INFUSING WELL. WILL ENDORSE ALL CONTINUITY CARE TO ONCOMING NURSE.
[2017-05-02 06:42] LABS: BASOPHIL % 0.8 % (0-2); PLATELET COUNT 297 x10^3mcL (130-400); RED CELL DISTRIBUTION WIDTH 13.2 % (11.5-14.5)
--- NOTE | 2017-05-02 07:30 | NUR ---
PT AWAKE ALERT AND ORIENTED X4, ABLE TO MAKE NEEDS KOWN. BLIND TO RIGHT EYE. TELE 15 SR. PULSES EQUAL NO ARI ANOTED. LUNGS DIMINISHED TO BLL, PT DENIES SOB, EVEN UNLABORED RESPIRATIONS. BOWEL TONES ACTIVE IN ALL QUADS. BRP. MILD GENERALIZED WEAKNESS. SKIN IS CDI. DENIES PAIN AT THIS TIME. RIJ PATENT X3 PORTS. PT CALM AND COOPERATIVE WITH CARE, NON SKID FOOTWEAR IN PLACE. CALL LIGHT IN REACH WILL CONTINUE TO MONITOR.
[2017-05-02 07:32] LABS: CALCIUM 8.3 mg/dL (8.5-10.1); CARBON DIOXIDE 31.3 mmol/L (21-32); CHLORIDE SERUM 105 mmol/L (98-107); CREATININE SERUM 0.9 mg/dL (0.7-1.3); GFR1 > 60 mL/min; GLUCOSE SERUM 204 mg/dL (74-106); MAGNESIUM 2.5 mg/dL (1.8-2.4); PHOSPHOROUS 3.9 mg/dL (2.5-4.9); POTASSIUM SERUM 3.8 mmol/L (3.5-5.1); SODIUM SERUM 141 mmol/L (136-145)
[2017-05-02 10:00] VITALS: BP 146/90
[2017-05-02 12:22] VITALS: BP 164/96
--- NOTE | 2017-05-02 12:45 | NUR ---
PT RESTING IN BED EVEN UNLABORED RESPIRATIONS, NO SIGNS OF DISTRESS CALL LIGHT IN REACH WILL CONTINUE TO MONITOR.
--- NOTE | 2017-05-02 15:43 | NUR ---
DISCHARGE INSTRUCTIONS GIVEN TO PT, PT VERBALIZED UNDERSTANDING. ALL BELONGINGS TAKEN BY PT. DISCHARGE PACKET IN HAND. RIJ DC'D, PRESSURE DRESSING APPLIED. TELE CLEANED AND RETURNED TO MONITOR ROOM. PT TAKEN DOWN TO LOBBY BY NURSE.
== END 2017-05-02 15:53 | disposition home or self-care (01) | DRG 720 ==
LOC: ED 22:57 → DU 04-28 03:07 → IC 04-28 03:07 → DU 04-28 17:40
PROVIDERS: Emergency Medicine; Family Medicine; ADMIT Family Medicine
PROC: 02HV33Z Insertion of Infusion Device into Superior Vena Cava, Percutaneous Approach (ICD-10-PCS; principal; 2017-04-28)
DX: A41.9 Sepsis, unspecified organism (principal); E13.10 Other specified diabetes mellitus with ketoacidosis without coma; E11.42 Type 2 diabetes mellitus with diabetic polyneuropathy; E87.1 Hypo-osmolality and hyponatremia; E83.42 Hypomagnesemia; K31.84 Gastroparesis; H54.8 Legal blindness, as defined in USA; E83.51 Hypocalcemia; D64.9 Anemia, unspecified; F12.10 Cannabis abuse, uncomplicated; E11.319 Type 2 diabetes mellitus with unspecified diabetic retinopathy without macular edema; E11.43 Type 2 diabetes mellitus with diabetic autonomic (poly)neuropathy; I10 Essential (primary) hypertension; Z79.84 Long term (current) use of oral hypoglycemic drugs; Z79.4 Long term (current) use of insulin; Z79.899 Other long term (current) drug therapy; Z83.3 Family history of diabetes mellitus; Z82.49 Family history of ischemic heart disease and other diseases of the circulatory system; Z91.14 Patient's other noncompliance with medication regimen
CPT/HCPCS: 36600; 82962; 83880; 84439; 87046; 87046-59; 97110-GP; 97116-GP; 97530-GP; J1815; J1885; J2060; J2405; J2543; J2550; J3475; J3480; J3490; J7030; J7042; Q0092

== ENCOUNTER 2017-07-20 00:41 | Inpatient (IN) | payer OTHER ==
[~2017-07-20] VITALS: Ht 170.2 cm; Wt 61.2 kg
[2017-07-20 02:19] LABS: PLATELET COUNT 285 x10^3mcL (130-400); RED CELL DISTRIBUTION WIDTH 13.2 % (11.5-14.5)
[2017-07-20 02:20] LABS: BASOPHIL % 0 % (0-2)
[2017-07-20 02:30] LABS: BILIRUBIN TOTAL 0.9 mg/dL (0.20-1.00); CALCIUM 8.9 mg/dL (8.5-10.1); CARBON DIOXIDE 18.3 mmol/L (21-32); CREATININE SERUM 1.7 mg/dL (0.7-1.3); POTASSIUM SERUM 4.7 mmol/L (3.5-5.1); TOTAL PROTEIN, SERUM 7.5 g/dL (6.4-8.2)
[2017-07-20 05:28] LABS: UA SPECIFIC GRAVITY 1.025 (1.005-1.035); microscopic required? YES; urine erythrocyte TRACE (NEGATIVE)
[2017-07-20 05:34] LABS: AMPHETAMINE QUAL UR NONE DETECTED (NEG <=1000)
[2017-07-20 05:44] LABS: FREE T4 1.47 ng/dL (0.76-1.46); FREE THYROXINE INDEX 3.4 ug/dL (1.4-4.5); T3 TOTAL 0.51 ng/mL; T4(THYROXINE) 9.3 ug/dL (4.7-13.3)
[2017-07-20 05:59] VITALS: BP 130/62
[2017-07-20 08:00] VITALS: BP 127/64
[2017-07-20 08:19] LABS: CALCIUM 7.4 mg/dL (8.5-10.1); CARBON DIOXIDE 21.6 mmol/L (21-32); CHLORIDE SERUM 111 mmol/L (98-107); CREATININE SERUM 1.3 mg/dL (0.7-1.3); GFR1 > 60 mL/min; GLUCOSE SERUM 162 mg/dL (74-106); MAGNESIUM 1.8 mg/dL (1.8-2.4); PHOSPHOROUS 2.9 mg/dL (2.5-4.9); SODIUM SERUM 143 mmol/L (136-145)
[2017-07-20 11:00] VITALS: BP 85/54
[2017-07-20 12:38] LABS: CALCIUM 7.2 mg/dL (8.5-10.1); CARBON DIOXIDE 23.8 mmol/L (21-32); CHLORIDE SERUM 110 mmol/L (98-107); CREATININE SERUM 1.2 mg/dL (0.7-1.3); GFR1 > 60 mL/min; GLUCOSE SERUM 200 mg/dL (74-106); PHOSPHOROUS 2.7 mg/dL (2.5-4.9); POTASSIUM SERUM 4.1 mmol/L (3.5-5.1); SODIUM SERUM 142 mmol/L (136-145)
[2017-07-20 16:00] VITALS: BP 113/76
[2017-07-20 16:20] LABS: CALCIUM 7.1 mg/dL (8.5-10.1); CARBON DIOXIDE 26.5 mmol/L (21-32); CHLORIDE SERUM 111 mmol/L (98-107); CREATININE SERUM 1.1 mg/dL (0.7-1.3); GFR1 > 60 mL/min; GLUCOSE SERUM 162 mg/dL (74-106); PHOSPHOROUS 2.5 mg/dL (2.5-4.9); POTASSIUM SERUM 3.7 mmol/L (3.5-5.1); SODIUM SERUM 142 mmol/L (136-145)
[2017-07-20 19:15] VITALS: BP 98/56
[2017-07-20 23:27] VITALS: BP 117/84
[2017-07-21 03:07] VITALS: BP 113/48
[2017-07-21 05:35] LABS: BASOPHIL % 0.2 % (0-2); PLATELET COUNT 131 x10^3mcL (130-400)
[2017-07-21 05:37] LABS: RED CELL DISTRIBUTION WIDTH 16.5 % (11.5-14.5)
[2017-07-21 05:49] LABS: CALCIUM 8.2 mg/dL (8.5-10.1); CARBON DIOXIDE 31.6 mmol/L (21-32); CHLORIDE SERUM 113 mmol/L (98-107); CREATININE SERUM 1.2 mg/dL (0.7-1.3); GFR1 > 60 mL/min; GLUCOSE SERUM 102 mg/dL (74-106); MAGNESIUM 2.2 mg/dL (1.8-2.4); PHOSPHOROUS 3.4 mg/dL (2.5-4.9); POTASSIUM SERUM 4.5 mmol/L (3.5-5.1); SODIUM SERUM 148 mmol/L (136-145); TRIGLYCERIDES 92 mg/dL (<150)
[2017-07-21 05:51] LABS: CHOLESTEROL 86 mg/dL (<200); CHOLESTEROL/HDL RATIO 2.8; HDL CHOLESTEROL 31 mg/dL (40-60)
[2017-07-21 07:20] VITALS: BP 121/87
[2017-07-21 12:54] VITALS: BP 133/69
[2017-07-21 17:32] VITALS: BP 121/68
[2017-07-21 21:10] VITALS: BP 144/60
[2017-07-22 05:32] VITALS: BP 137/75
[2017-07-22 06:18] LABS: BASOPHIL % 0.2 % (0-2); PLATELET COUNT 219 x10^3mcL (130-400); RED CELL DISTRIBUTION WIDTH 13.1 % (11.5-14.5)
[2017-07-22 06:22] LABS: CALCIUM 7.6 mg/dL (8.5-10.1); CARBON DIOXIDE 28.8 mmol/L (21-32); CHLORIDE SERUM 106 mmol/L (98-107); CREATININE SERUM 0.8 mg/dL (0.7-1.3); GFR1 > 60 mL/min; GLUCOSE SERUM 166 mg/dL (74-106); POTASSIUM SERUM 3.5 mmol/L (3.5-5.1); SODIUM SERUM 138 mmol/L (136-145)
[2017-07-22 08:54] VITALS: BP 129/78
[2017-07-22 09:00] VITALS: BP 98/46
[2017-07-22 13:02] VITALS: BP 140/86
[2017-07-22] MEDS ORDERED: LEVEMIR100 U/M1 SQ (16:54)
[2017-07-22] MEDS ORDERED: NEEDLE1 EA10 MC (16:54)
[2017-07-22] MEDS ORDERED: LEVAQUIN750 MG PO (17:21)
[2017-07-22] MEDS ORDERED: ACIDOPHILUS1 EAC1 PO (17:21)
[2017-07-22] MEDS ORDERED: PYRIDIUM100 MG PO (17:21)
[2017-07-22 17:42] VITALS: BP 140/86
== END 2017-07-22 19:41 | disposition home or self-care (01) | DRG 420 ==
LOC: ED 00:41 → IC 04:21 → DU 07-21 10:31
PROVIDERS: Emergency Medicine; ADMIT Family Medicine
PROC: 02HV33Z Insertion of Infusion Device into Superior Vena Cava, Percutaneous Approach (ICD-10-PCS; principal; 2017-07-20)
PROC: B5181ZA Fluoroscopy of Superior Vena Cava using Low Osmolar Contrast, Guidance (ICD-10-PCS; 2017-07-20)
DX: E11.10 Type 2 diabetes mellitus with ketoacidosis without coma (principal); N17.0 Acute kidney failure with tubular necrosis; E11.42 Type 2 diabetes mellitus with diabetic polyneuropathy; E87.8 Other disorders of electrolyte and fluid balance, not elsewhere classified; E11.65 Type 2 diabetes mellitus with hyperglycemia; E11.319 Type 2 diabetes mellitus with unspecified diabetic retinopathy without macular edema; Z79.4 Long term (current) use of insulin; H54.8 Legal blindness, as defined in USA; Z68.25 Body mass index [BMI] 25.0-25.9, adult
CPT/HCPCS: 36556; 36600; 82962; 83880; 84439; 90658; 90732; C9113; J1170; J1642; J1815; J2060; J2405; J2543; J3475; J3490; J7030; J7040; Q0092

== ENCOUNTER 2018-04-22 13:32 | Inpatient (IN) | payer OTHER ==
[~2018-04-22] VITALS: Ht 170.2 cm; Wt 59.0 kg
[~2018-04-22 13:32] MED LIST changes: +ACIDOPHILUS1 EAC1 PO; +NEEDLE1 EA10 MC; +PYRIDIUM100 MG PO
[2018-04-22 13:49] VITALS: Ht 170.2 cm; Wt 59.0 kg
[2018-04-22 14:50] LABS: BASOPHIL % 0.5 % (0-2); PLATELET COUNT 278 x10^3mcL (130-400); RED CELL DISTRIBUTION WIDTH 12.9 % (11.5-14.5)
[2018-04-22 15:07] LABS: ALBUMIN 4.1 g/dL (3.4-5.0); ALKALINE PHOSPHATASE 74 U/L (46-116); ALT/SGPT 25 U/L (16-63); AST/SGOT 9 U/L (15-37); BILIRUBIN TOTAL 1.8 mg/dL (0.20-1.00); CALCIUM 9.6 mg/dL (8.5-10.1); CARBON DIOXIDE 22.6 mmol/L (21-32); CHLORIDE SERUM 95 mmol/L (98-107); CREATININE SERUM 1.3 mg/dL (0.7-1.3); GFR1 > 60 mL/min; LIPASE 66 IU/L (73-393); PHOSPHOROUS 1.4 mg/dL (2.5-4.9); POTASSIUM SERUM 3.3 mmol/L (3.5-5.1); SODIUM SERUM 134 mmol/L (136-145); TOTAL PROTEIN, SERUM 7.5 g/dL (6.4-8.2)
[2018-04-22 15:29] LABS: GLUCOSE SERUM 462 mg/dL (74-106)
[2018-04-22 16:59] LABS: T3 TOTAL 0.79 ng/mL
[2018-04-22 17:08] LABS: microscopic required? YES; urine erythrocyte NEGATIVE (NEGATIVE)
[2018-04-22 17:22] LABS: AMPHETAMINE QUAL UR POSITIVE (See below)
[2018-04-22 18:06] LABS: FREE T4 1.69 ng/dL (0.76-1.46); FREE THYROXINE INDEX 4.5 ug/dL (1.4-4.5); T4(THYROXINE) 12.6 ug/dL (4.7-13.3)
[2018-04-22 18:20] LABS: CHOLESTEROL/HDL RATIO 1.8
[2018-04-22 18:41] VITALS: BP 128/78
[2018-04-22 20:02] VITALS: BP 102/61
[2018-04-22 20:12] LABS: CALCIUM 7.9 mg/dL (8.5-10.1); CARBON DIOXIDE 29.2 mmol/L (21-32); CHLORIDE SERUM 106 mmol/L (98-107); CREATININE SERUM 1.1 mg/dL (0.7-1.3); GFR1 > 60 mL/min; GLUCOSE SERUM 294 mg/dL (74-106); MAGNESIUM 1.8 mg/dL (1.8-2.4); PHOSPHOROUS 3.7 mg/dL (2.5-4.9); POTASSIUM SERUM 3.5 mmol/L (3.5-5.1); SODIUM SERUM 143 mmol/L (136-145)
[2018-04-22 23:39] VITALS: BP 109/64
[2018-04-23 01:38] LABS: CARBON DIOXIDE 28.5 mmol/L (21-32); CHLORIDE SERUM 108 mmol/L (98-107); CREATININE SERUM 0.9 mg/dL (0.7-1.3); GFR1 > 60 mL/min; MAGNESIUM 1.8 mg/dL (1.8-2.4); PHOSPHOROUS 3.4 mg/dL (2.5-4.9); POTASSIUM SERUM 3.8 mmol/L (3.5-5.1); SODIUM SERUM 142 mmol/L (136-145)
[2018-04-23 01:46] LABS: GLUCOSE SERUM 57 mg/dL (74-106)
[2018-04-23 03:16] VITALS: BP 102/61
[2018-04-23 04:33] LABS: CALCIUM 7.9 mg/dL (8.5-10.1); CARBON DIOXIDE 28.6 mmol/L (21-32); CHLORIDE SERUM 104 mmol/L (98-107); CREATININE SERUM 0.9 mg/dL (0.7-1.3); GFR1 > 60 mL/min; GLUCOSE SERUM 162 mg/dL (74-106); MAGNESIUM 1.7 mg/dL (1.8-2.4); PHOSPHOROUS 3.4 mg/dL (2.5-4.9); POTASSIUM SERUM 3.7 mmol/L (3.5-5.1); SODIUM SERUM 138 mmol/L (136-145)
[2018-04-23 04:38] LABS: BASOPHIL % 0.2 % (0-2); PLATELET COUNT 254 x10^3mcL (130-400); RED CELL DISTRIBUTION WIDTH 12.9 % (11.5-14.5)
[2018-04-23 07:30] VITALS: BP 130/71
[2018-04-23 08:45] LABS: CARBON DIOXIDE 27.1 mmol/L (21-32); CHLORIDE SERUM 103 mmol/L (98-107); CREATININE SERUM 0.9 mg/dL (0.7-1.3); GFR1 > 60 mL/min; GLUCOSE SERUM 193 mg/dL (74-106); MAGNESIUM 1.7 mg/dL (1.8-2.4); PHOSPHOROUS 3.2 mg/dL (2.5-4.9); POTASSIUM SERUM 3.9 mmol/L (3.5-5.1); SODIUM SERUM 135 mmol/L (136-145)
[2018-04-23 11:51] VITALS: BP 131/83
[2018-04-23 17:08] VITALS: BP 104/70
[2018-04-23 20:59] VITALS: BP 130/77
[2018-04-24 05:41] VITALS: BP 142/76
[2018-04-24 08:39] VITALS: BP 122/77
[2018-04-24 13:42] LABS: ALKALINE PHOSPHATASE 65 U/L (46-116); ALT/SGPT 21 U/L (16-63); AST/SGOT 16 U/L (15-37); BILIRUBIN TOTAL 0.5 mg/dL (0.20-1.00); CALCIUM 8.1 mg/dL (8.5-10.1); CARBON DIOXIDE 29.7 mmol/L (21-32); CHLORIDE SERUM 100 mmol/L (98-107); GFR1 > 60 mL/min; GLUCOSE SERUM 245 mg/dL (74-106); POTASSIUM SERUM 4.2 mmol/L (3.5-5.1); SODIUM SERUM 137 mmol/L (136-145); TOTAL PROTEIN, SERUM 6.4 g/dL (6.4-8.2)
[2018-04-24 13:49] LABS: ALBUMIN 3.2 g/dL (3.4-5.0)
[2018-04-24 14:10] LABS: MAGNESIUM 1.8 mg/dL (1.8-2.4); PHOSPHOROUS 3.2 mg/dL (2.5-4.9)
[2018-04-24 14:26] LABS: BASOPHIL % 0.6 % (0-2); PLATELET COUNT 253 x10^3mcL (130-400); RED CELL DISTRIBUTION WIDTH 13.5 % (11.5-14.5)
[2018-04-24 17:52] VITALS: BP 133/85
[2018-04-24 20:56] VITALS: BP 146/77
[2018-04-25 06:07] VITALS: BP 128/83
[2018-04-25 07:30] LABS: BASOPHIL % 0.7 % (0-2); PLATELET COUNT 224 x10^3mcL (130-400); RED CELL DISTRIBUTION WIDTH 13.3 % (11.5-14.5)
[2018-04-25 08:04] LABS: MAGNESIUM 1.9 mg/dL (1.8-2.4); PHOSPHOROUS 3.3 mg/dL (2.5-4.9)
[2018-04-25 09:17] VITALS: BP 131/80
[2018-04-25 15:58] VITALS: BP 136/80
[2018-04-25] MEDS ORDERED: METFORMIN HCL850 MG PO (17:02)
[2018-04-25 17:03] VITALS: BP 136/80
[2018-04-25] MEDS ORDERED: LANTUS100 U/ML SC (17:05)
[2018-04-25 18:25] VITALS: BP 129/76
== END 2018-04-25 18:30 | disposition home or self-care (01) | DRG 420 ==
LOC: ED 13:32 → IC 16:24 → MU 16:24 → DU 16:24 → IC 18:27 → DU 18:57 → MU 04-24 11:06
PROVIDERS: Emergency Medicine; Family Medicine
DX: E11.10 Type 2 diabetes mellitus with ketoacidosis without coma (principal); N17.0 Acute kidney failure with tubular necrosis; G93.41 Metabolic encephalopathy; E87.3 Alkalosis; E11.40 Type 2 diabetes mellitus with diabetic neuropathy, unspecified; I10 Essential (primary) hypertension; E87.6 Hypokalemia; F12.20 Cannabis dependence, uncomplicated; E83.42 Hypomagnesemia; E83.39 Other disorders of phosphorus metabolism; E87.8 Other disorders of electrolyte and fluid balance, not elsewhere classified; E86.0 Dehydration; F15.10 Other stimulant abuse, uncomplicated; Z79.4 Long term (current) use of insulin; Z68.20 Body mass index [BMI] 20.0-20.9, adult; Z79.84 Long term (current) use of oral hypoglycemic drugs; Z91.19 Patient's noncompliance with other medical treatment and regimen; Z83.3 Family history of diabetes mellitus; Z82.49 Family history of ischemic heart disease and other diseases of the circulatory system
CPT/HCPCS: 36600; 82962; 83880; 84439; J1815; J2060; J2270; J2765; J3010; J3480; J3490; J7030; Q0092

== ENCOUNTER 2018-12-14 05:27 | Inpatient (IN) | payer OTHER ==
[~2018-12-14] VITALS: Ht 170.2 cm; Wt 62.8 kg
[~2018-12-14 05:27] MED LIST changes: +LANTUS100 U/ML SC; +METFORMIN HCL850 MG PO
[2018-12-14 05:28] VITALS: Ht 170.2 cm; Wt 62.8 kg
--- NOTE | 2018-12-14 05:35 | NUR ---
PT PRESENTS TO ER TODAY WITH C/O OF HEMATEMESIS THAT STARTED AT APPROX 0100 THIS MORNING. PT STATES THAT SYMPTOMS STARTED WITH MALAISE AND CP PAIN LAST NIGHT. PT WOKE UP AT APPROX 0100 THIS MORNING VOMITING BLOOD. PER PT HE HAS VOMITED APPROX 8 TIME SINCE. PT ALSO COMPLAINING OF CP ON THE L SIDE OF HIS CHEST THAT RADIATES DOWN TO HIS HANDS. PT RATES PAIN A 10/10 AND STATES IT FEELS SHARP. PT ALSO COMPALING OF SOB, PTS LUNG SOUNDS ARE CLEAR BILATERALLY ON AUSCULTATION OF ALL LOBES. PT DENIES ANY DIARRHEA OR FEVER. PTS SKIN PALE AND COOL TO THE TOUCH. PT ACTIVELY VOMITNG COFFEE GROUND EMESIS. PT IS A/O X4. RESP ARE EQUAL AND UNLABORED. PT PLACED ON FULL COFFEE MAKER SERVICER.
[2018-12-14 06:11] LABS: BASOPHIL % 0 % (0-2); PLATELET COUNT 274 x10^3mcL (130-400); RED CELL DISTRIBUTION WIDTH 13.3 % (11.5-14.5)
[2018-12-14 06:23] LABS: ALBUMIN 3.7 g/dL (3.4-5.0); BILIRUBIN TOTAL 1.11 mg/dL (0.20-1.00); CALCIUM 8.9 mg/dL (8.5-10.1); CARBON DIOXIDE 22.3 mmol/L (21-32); CREATININE SERUM 1.5 mg/dL (0.7-1.3); POTASSIUM SERUM 4.9 mmol/L (3.5-5.1); TOTAL PROTEIN, SERUM 6.9 g/dL (6.4-8.2)
--- NOTE | 2018-12-14 07:05 | NUR ---
REPORT RECIEVED FROM ALVERTO DUMAS I WILL BE RESUMING CARE OF PT AT THIS TIME
--- NOTE | 2018-12-14 07:06 | NUR ---
PT AAOX4 RESPS E/U PT EPISODE OF VOMITING WHEN ENTERING ROOM. EMESIS BAG PROVIDED. VITALS STABLE AT THIS TIME. MD OTOOLE MADE AWARE
--- NOTE | 2018-12-14 07:30 | NUR ---
INITIATED COMFORT MEASURES
--- NOTE | 2018-12-14 07:57 | NUR ---
PT TAKEN TO CT VIA OLIVIA
--- NOTE | 2018-12-14 08:17 | NUR ---
LEFT BICEP IV FELL OUT. IV REMOVED NO BLEEDING NOTED.
--- NOTE | 2018-12-14 08:51 | NUR ---
PT FOUND ACTIVELY VOMITING INTO EMESIS BAG. VSS RESPS E/U MD OTOOLE NOTIFIED PT MEDICATED PER MD ORDERS CALL LIGHT WITHIN REACH PT INSTRUCTED TO USE IF ANY ASSISTANCE NEEDED WILL CONTINUE TO MONITOR
[2018-12-14] MEDS ORDERED: MELOXICAM7.5 M1 (09:10)
--- NOTE | 2018-12-14 09:56 | NUR ---
RECEIVED PATIENT FROM ED VIA GUERNEY. PATIENT IS AWAKE AND ALERT, AND APPEARS UNCOMFORTABLE RELATED TO PAIN. PATIENT IS ABLE TO STEADILY AMBULATE FROM GUERNEY TO BED. TELE#37 APPLIED TO PATIENT READING SR, HR 86. PATIENT C/O CHEST PAIN THAT IS SHARP, DULL AND BURNING AND RADIATES TO STOMACH AND RIBS. C/O HEADACHE, NAUSEA AND DIZZINESS. IV NOTED TO RFA, FLUSHING WELL, NO S/S ERYTHEMA AT SITE. PATIENT ORIENTED TO THE ROOM. CALL LIGHT WITHIN EASY REACH. FALL AND ASPIRATION PREC IN PLACE. WILL ENDORSE PATIENT CARE TO PRIMARY NURSE KATHE.
[2018-12-14 10:08] LABS: MAGNESIUM 2.3 mg/dL (1.8-2.4); PHOSPHOROUS 2.7 mg/dL (2.5-4.9)
[2018-12-14 10:13] LABS: CHOLESTEROL/HDL RATIO 1.8
--- NOTE | 2018-12-14 10:20 | NUR ---
RECIEVED PT. AWAKE,ALERT AND ORIENTED,C/O PAIN IN EPIGASTRIC AREA RADIATING TO HIS CHEST MADE PT. COMFORTABLE IN BED. CALL LIGHT W/ IN REACH. BECKY SOSA MADE AWARE OF PT. ADMISSION AND PT. CONDITION.NO ACUTE RESP. DISTRESS NOTED. WILL C ONT. TO MONITOR PT.
[2018-12-14 10:27] VITALS: BP 155/77
--- NOTE | 2018-12-14 11:00 | NUR ---
CT /ABD/PELVIS RESULTS -RECTAL DISTENTION AND FECAL IMPACTION.SANDWICH HAND SHEILA REEVES NOTIFIED AND MADE AWARE.
--- NOTE | 2018-12-14 11:30 | NUR ---
PT. HX OF DM AND NOTED AIC 12.7 AND THE BLOOD GLUCOSE FROM ER WAS 312 MG/DL NOTIFIED TO GATHERING MACHINE FEEDER SHEILA REEVES AND MADE AWARE NO FURTHER ORDERS MADE.
--- NOTE | 2018-12-14 12:00 | NUR ---
PAIN MEDICATION GIVEN MORPHINE ORDERED.CALL LIGHT W/ IN REACH. WILL CONT.TO MONITOR PT.
--- NOTE | 2018-12-14 14:00 | NUR ---
FLEET ENEMA GIVEN A SORDERED W/ GOOD RESULTS.
--- NOTE | 2018-12-14 14:00 | NUR ---
PT. STILL C/O ABD. PAIN MEDICATED W/ REGLAN IVP ORDERED.AND S[place] ORDERED.
--- NOTE | 2018-12-14 15:26 | NUR ---
PT. AMBULATED IN THE BATHROOM AND VOIDING WELL.AND STATED HAD BM X 1 PT. REFUSED PAT CATH. TO BE INSERTED. MADE AWARE AND CHARGED NURSE NOTIFIED
--- NOTE | 2018-12-14 16:30 | NUR ---
BLOOD SUGAR CHECKED AND RESULTS 343 MG./DL NOTIFIED TO GOVERNMENT PROPERTY INSPECTOR SHEILA REEVES W/ ORDERS RECIEVED AND CARRIED OUT.PT. ASSYMPTOMATIC .
--- NOTE | 2018-12-14 18:00 | NUR ---
PT. RESTING COMFORTABLY IN BED. STATED HE FEELS MUCH BETTER AFTER HAS BM X 4 AMBULATED IN THE BATHROOM AND VOIDING WELL.
--- NOTE | 2018-12-14 19:30 | NUR ---
PT IS ALERT AND ORIENTED X 4. PLEASANT AND COOPERATIVE. LUNGS CLEAR ON AUSCULTATIONS BIALTERALLY. ROOM AIR. AMBULATORY. STILL HAS IV NS AT 100 ML PER HOUR INFUSING WELL IN THE RIGHT AC. PATENT AND INTACT. REGLAN AND ZOFRAN IV WERE GIVEN BECAUSE OF NAUSEA AND VOMIOTING. AND WAS GIVEN MORPHINE TOO FOR ABDOMINAL PAIN. DURING BEDSIDE REPORT PT STILL HAVING 6/10 ABDOMINAL PAIN. PT WAS GIVEN ALSO LAXATIVE TO MOVE HIS BOWEL BECAUSE HE HAS FECAL IMPACTION RESULT FROM CT ABDOMEN. PT STATED HE HAS A LOT OF TIMES BM ALREADY. WILL MONITOR.
[2018-12-14 21:00] VITALS: BP 135/60
--- NOTE | 2018-12-14 23:30 | NUR ---
PT CALLED THAT HE WAS SWEATING PROFUSELY. CHECKED BLOOD SUGAR WAS 33. PLACED SOME SUGAR IN HIS TONGUE. PT WAS AYSYMPTOMATIC ALERT AND ORIENTED X 4. RECHEKED THE SECOND TIME IT WAS 29 MG/DL. ADMINISTERED D50W 50 ML IV PUSH. RECHECKED AND IT WAS 170 MG/DL. AND PT ALSO TOOK SOME JUICE APPLE AND ORANGE JUICE. WILL MONITOR.
--- NOTE | 2018-12-15 01:18 | NUR ---
THE LATEST BLOOD SUGAR CHECKED WAS 163 MG/DL. PT IS RESTING IN BED. NO MORE SWEATING. NOTIFIED DR. QUEEN AND NO NEW ORDER MADE. CONTINUE THE SAME TREATMENT. IVFLUIDS IS THE SAME.
--- NOTE | 2018-12-15 04:39 | NUR ---
PT IS RESTING IN BED. HAD EPISODES OF HYPOGLYCEMIC EFFECT. BUT ITS NORMALIZED WITH D50W. STILL HAS IV NS AT 100 ML PER HOUR INFUSING WELL IN THE RIGHT AC. HAD SEVERAL BMS AND HAD TAKEN MAG CITRATE AND MIRALAX AND COLACE. RIGHT EYE BLIND. WILL CONTINUE TO MONITOR.
--- NOTE | 2018-12-15 06:38 | NUR ---
DR QUEEN WAS NOTIFIED ABOUT THE BS 396 MG/DL. CARRIED NEW ORDER. ADMINISTERED 10 UNITS REG INSULIN X 1.
[2018-12-15 07:44] LABS: BASOPHIL % 0.2 % (0-2); PLATELET COUNT 236 x10^3mcL (130-400); RED CELL DISTRIBUTION WIDTH 13.6 % (11.5-14.5)
--- NOTE | 2018-12-15 07:45 | NUR ---
AWAKE,ALERT AND ORIENTED.DENIES ANY CHEST PAIN AND NO ABD. DISCOMFORT AT THIS TIME. VOIDING WELL IN THE BATHROOM,CONT. IV FLUIDS ORDERED .WILL CONT. PLAN OF CARE.
[2018-12-15 07:47] LABS: CALCIUM 7.7 mg/dL (8.5-10.1); CHLORIDE SERUM 100 mmol/L (98-107); CREATININE SERUM 1.1 mg/dL (0.7-1.3); GFR1 > 60 mL/min; GLUCOSE SERUM 352 mg/dL (74-106); POTASSIUM SERUM 3.9 mmol/L (3.5-5.1); SODIUM SERUM 134 mmol/L (136-145)
[2018-12-15 08:42] VITALS: BP 119/77
[2018-12-15 11:54] VITALS: BP 125/72
--- NOTE | 2018-12-15 14:30 | NUR ---
PT. C/O ABD. PAIN REGLAN GIVEN A SORDERED IVP.CONT. IV FLUIDS ORDERED.NO ACUTE DISTRESS NOTED.
--- NOTE | 2018-12-15 15:30 | NUR ---
PT. RESTING COMFORTABLY IN BED. CALL LIGHT W/ IN REACH.
--- NOTE | 2018-12-15 16:00 | NUR ---
PT. C/O NAUSEATED AND ABD. PAIN PRILOSEC GIVEN AND ZOFRAN GIVEN ORDERED.MADE COMFORTABLE IN BED. CALL LIGHT W/ IN REACH.
[2018-12-15 17:10] VITALS: BP 169/86
--- NOTE | 2018-12-15 18:16 | NUR ---
[facility] COMF[facility]ED. CALL LIGHT W/ IN REACH.
--- NOTE | 2018-12-15 18:40 | NUR ---
DR. Tyler BOYLE HERE AND SEEN THE PT. AND EXPLAINED THE PROCEDURE FOR EGD TOMORROW AND PT. VERBALIZED UNDERSTANDING OF EGD PROCEDURE AND PT. SIGNED THE CONSENT.INSTRUCTED TO PT. NPO AFTER MN. AND MADE AWARE.
--- NOTE | 2018-12-15 19:30 | NUR ---
PT IS ALERT AND ORIENTED X 4. PLEASANT AND COOPERATIVE. LUNGS CLEAR ON AUSCULTATIONS BILATERALLY. 02SAT 98%. RIGHT EYE BLIND. AMBULATORY. STILL HAS IV NS AT 70 ML PER HOUR INFUSING WELL IN THE RIGHT AC. DENIES ANY PAIN AT THIS TIME. MADE COMFORTABLE IN BED. CALL LIGHT WITHIN EASY REACH.
[2018-12-15 21:00] VITALS: BP 139/73
--- NOTE | 2018-12-15 21:36 | NUR ---
PT C/O HEADACHE 02/27. MEDICATED WITH TYLENOL 650 MG PO. WILL MONITOR.
--- NOTE | 2018-12-16 05:02 | NUR ---
PT IS RESTING RIGHT NOW. DENIES ANY ABDOMINAL PAIN. STILL HAS IV NS AT 70 ML PER HOUR INFUSING WELL. PRE OP CHECK LIST IS DONE. FOR EGD THIS MORNING. NPO SINCE MIDNIGHT. WILL MONITOR.
[2018-12-16 06:25] VITALS: BP 147/78
--- NOTE | 2018-12-16 07:30 | NUR ---
PT IS ALERT AND ORIENTED X 4. LUNGS CLEAR ON AUSCULTATION BILATERALLY. ROOM AIR. 02SAT -97%. HAS SOME STOMACH DISCOMFORT BUT NOTED NO VOMITING AND NO NAUSEA THE WHOLE NIGHT. BUT PT RECEIVED REGLAN IV ROUTINE DOSE AND IT IS VERY EFFECTIVE IN CONTROLLING THE PAIN. SHEILA NURSE CLINICIAN WHO IS ASSIGNED TO PT WAS NOTIFIED ABOUT THE UNCONTROLLABLE BLOOD SUGAR LEVEL. NOTED THE LATEST BLOOD SUGAR LEVEL 385 AND WAS GIVEN 10 UNITS BY MICAH 10 UNITS REG INSULIN AND SHEILA WAS ALSO NOTED ABOUT HIS REFUSAL OF INSULIN LAST NIGHT BECAUSE HE WAS AFRAID IT WILL BOTTOM DOWN AGAIN LIKE THE OTHER NIGHT IT WILL DROP TO 29 AND BECAME SYMPTOMATIC. READY FOR EGD PROCEDURE THIS MORNING SET AT 0900AM. WILL CONTINUE TO MONITOR.
[2018-12-16 08:10] LABS: CALCIUM 7.9 mg/dL (8.5-10.1); CARBON DIOXIDE 27.9 mmol/L (21-32); CHLORIDE SERUM 104 mmol/L (98-107); CREATININE SERUM 1.2 mg/dL (0.7-1.3); GFR1 > 60 mL/min; GLUCOSE SERUM 280 mg/dL (74-106); SODIUM SERUM 137 mmol/L (136-145)
[2018-12-16 08:13] LABS: BASOPHIL % 0.7 % (0-2); PLATELET COUNT 235 x10^3mcL (130-400); RED CELL DISTRIBUTION WIDTH 13.5 % (11.5-14.5)
[2018-12-16 09:30] VITALS: BP 135/83
--- NOTE | 2018-12-16 10:02 | NUR ---
PT FEELING LIKE BLOOD SUGAR IS GOING DOWN BECAUSE HE FELT TINGLING OF HIS TONGUE AND NUMBNESS OF HIS FINGERNAILS. SO RECHECKED BLOOD SUGAR AND IT WAS 129 MG/DL. PT IS ALSO ANXIOUS OF WHEN THE EGD PROCEDURE IS DONE. SO CALLED GI AND TALKED TO OSMINA ABOUT PT'S CONCERNED AND HIS BLOOD SUGAR LEVEL 129 FROM 385 AND TOLD HER THAT PT WAS GIVEN 10 UNITS OF REGULAR INSULIN. SHE SAID SHE WILL PROBABLY GET TO MIS TURN IN 20 MINUTES. WILL MONITOR.
--- NOTE | 2018-12-16 10:30 | NUR ---
OFF FLOOR TO EGD.
--- NOTE | 2018-12-16 11:47 | NUR ---
RECEIVED REPORT FROM OUT PT AND GOT REPORT POST OP EGD. POST OP DX. EROSIVE GERD. WAITING FOR PT BACK TO FLOOR. ESOPHAGEAL BIOPSY DONE.
--- NOTE | 2018-12-16 12:19 | NUR ---
PT ARRIVED FROM [facility] OUTPT. ALERT BUT STILL DROWSY AND ANDREA SIGNS STABLE. WILL CONTINUE TO MONITOR.
--- NOTE | 2018-12-16 12:29 | NUR ---
RANDOME ACCUCHECKED BS AFTER EGD PROCEDURE IS 195 MG/DL. PT REFSUED INSULIN FOR NOW.
--- NOTE | 2018-12-16 12:32 | NUR ---
PT BLOOD SUGAR WAS 195 MG /DL. RECHECKED.
[2018-12-16] MEDS ORDERED: GOOD SENSE OMEP20 MG PO (12:45)
[2018-12-16] MEDS ORDERED: REGLAN10 M1 PO (12:51)
[2018-12-16] MEDS ORDERED: MIRALAX17 GM/Dose PO (12:53)
[2018-12-16 13:06] VITALS: BP 155/91
--- NOTE | 2018-12-16 13:38 | NUR ---
PT STILL SLEEPING,DROWSY FROM EGD PROCEDURE. DID NOT EAT LUNCH YET. DISCHAGE PAPER WORKS COMPLETED. MOTHER WAITING AND MADE AWARE OF DISCHARGE. GAVE REPORT TO PIO DUMAS WHO WILL RESUME PT CARE.
--- NOTE | 2018-12-16 13:38 | NUR ---
RECEIVED PT FROM AFIA REEVES RN, PT IS SLEEPING. MOTHER AT BEDSIDE, EXPLAIN THE DISCHARGE PLAN TO MOTHER. AND TALKED TO SOFTWARE PACKAGING ENGINEER SHEILA REGARDING THAT EXPLAIN THE EGD RESULT TO PT, SHEILA STATE SHE ALREADY EXPLAIN THE RESULT TO THE PT. PT ALREADY AWARE, WAITING FOR PT WAKE UP FROM POST ANESTHESIA. WILL CONTINUE TO MONITOR.
--- NOTE | 2018-12-16 14:11 | NUR ---
ALL DISCHARGE INSTRUCTION EXPLAIN TO PT. ALL PAPER SIGNED. WAITING FOR PT FINISH THE LUNG TRAY TO DISCHARGE FROM THE FLOOR. WILL CONTINUE TO [facility] PT.
[2018-12-16 14:20] VITALS: BP 155/94
--- NOTE | 2018-12-16 14:27 | NUR ---
PT IS READY TO DISCHARGE FROM THE FLOOR, PT IS A/O X4, VERBAL RESPONSIVE, ABLE TO TELL WHAT HE NEEDS. DENY ANY RESPIRATORY DISRESS, DENY ANY PAIN OR DISCOMFORT. IV REMOVED FROM RIGHT FA, COMMERCIAL CORRESPONDENT WILL WHEEL HIM DOWN WITH WHEEL CHAIR.
== END 2018-12-16 14:38 | disposition home or self-care (01) | DRG 380 ==
LOC: ED 05:27 → MU 08:50 → DU 08:50 → MU 12-15 14:41
PROVIDERS: Internal Medicine Gastroenterology; ADMIT Internal Medicine
PROC: 0DB68ZX Excision of Stomach, Via Natural or Artificial Opening Endoscopic, Diagnostic (ICD-10-PCS; principal; 2018-12-16 10:30)
DX: K22.11 Ulcer of esophagus with bleeding (principal); N17.0 Acute kidney failure with tubular necrosis; Z68.1 Body mass index [BMI] 19.9 or less, adult; K21.9 Gastro-esophageal reflux disease without esophagitis; E11.65 Type 2 diabetes mellitus with hyperglycemia; E11.42 Type 2 diabetes mellitus with diabetic polyneuropathy; F12.10 Cannabis abuse, uncomplicated; H54.40 Blindness, one eye, unspecified eye; Z79.4 Long term (current) use of insulin
CPT/HCPCS: 36600; 43235; 82962; 83880; J1200; J1610; J1815; J2250; J2270; J2310; J2405; J2765; J3010; J3490; J7030; Q0092; Q9967

== ENCOUNTER 2019-03-19 21:06 | Emergency (ER) | payer OTHER ==
[~2019-03-19] VITALS: Ht 170.2 cm; Wt 65.8 kg
[~2019-03-19 21:06] MED LIST changes: +GOOD SENSE OMEP20 MG PO; +MELOXICAM7.5 M1; +MIRALAX17 GM/Dose PO; +REGLAN10 M1 PO
[2019-03-19 21:34] VITALS: Ht 170.2 cm; Wt 65.8 kg
[2019-03-19 22:13] LABS: BASOPHIL % 0.6 % (0-2); PLATELET COUNT 322 x10^3mcL (130-400)
[2019-03-19 22:23] LABS: CALCIUM 9.1 mg/dL (8.5-10.1); CARBON DIOXIDE 30.1 mmol/L (21-32); CHLORIDE SERUM 103 mmol/L (98-107); CREATININE SERUM 1.4 mg/dL (0.7-1.3); GFR1 59 mL/min; GLUCOSE SERUM 334 mg/dL (74-106); POTASSIUM SERUM 4.5 mmol/L (3.5-5.1); SODIUM SERUM 141 mmol/L (136-145)
[2019-03-19 22:28] LABS: ALKALINE PHOSPHATASE 102 U/L (46-116); ALT/SGPT 44 U/L (16-63); AST/SGOT 16 U/L (15-37); BILIRUBIN TOTAL 0.6 mg/dL (0.20-1.00); LIPASE 52 IU/L (73-393); TOTAL PROTEIN, SERUM 6.3 g/dL (6.4-8.2)
[2019-03-19 23:24] LABS: AMPHETAMINE QUAL UR NONE DETECTED (See below)
[2019-03-20 02:04] VITALS: BP 149/82
== END 2019-03-20 02:04 | disposition home or self-care (01) ==
LOC: ED 21:06
PROVIDERS: Emergency Medicine
DX: R07.89 Other chest pain (principal); R51 Headache; R11.10 Vomiting, unspecified; E11.65 Type 2 diabetes mellitus with hyperglycemia; E11.40 Type 2 diabetes mellitus with diabetic neuropathy, unspecified
CPT/HCPCS: 82962; G0480; J1200; J1885; J2765; J7030

== ENCOUNTER 2019-05-26 09:12 | Emergency (ER) | payer OTHER ==
[~2019-05-26] VITALS: Ht 170.2 cm; Wt 72.6 kg
[2019-05-26 09:17] VITALS: Ht 170.2 cm; Wt 72.6 kg
[2019-05-26 10:14] LABS: BASOPHIL % 0.9 % (0-2); PLATELET COUNT 372 x10^3mcL (130-400); RED CELL DISTRIBUTION WIDTH 13.7 % (11.5-14.5)
[2019-05-26 10:29] LABS: CALCIUM 8.1 mg/dL (8.5-10.1); CREATININE SERUM 1.7 mg/dL (0.7-1.3); POTASSIUM SERUM 4.1 mmol/L (3.5-5.1)
[2019-05-26 10:34] LABS: BILIRUBIN TOTAL 0.7 mg/dL (0.20-1.00); TOTAL PROTEIN, SERUM 6.5 g/dL (6.4-8.2)
[2019-05-26 10:36] LABS: ALBUMIN 2.9 g/dL (3.4-5.0)
[2019-05-26 13:05] VITALS: BP 152/81
== END 2019-05-26 13:05 | disposition home or self-care (01) ==
LOC: ED 09:12
PROVIDERS: Emergency Medicine
DX: E11.43 Type 2 diabetes mellitus with diabetic autonomic (poly)neuropathy (principal); K31.84 Gastroparesis; E11.65 Type 2 diabetes mellitus with hyperglycemia; E11.40 Type 2 diabetes mellitus with diabetic neuropathy, unspecified
CPT/HCPCS: 82962; J2060; J2270; J2405; J7030

== ENCOUNTER 2019-06-02 17:12 | Emergency (ER) | payer OTHER ==
[~2019-06-02] VITALS: Ht 170.2 cm; Wt 72.8 kg
[2019-06-02 17:16] VITALS: Ht 170.2 cm; Wt 72.8 kg
[2019-06-02 20:44] LABS: BASOPHIL % 0.8 % (0-2); PLATELET COUNT 319 x10^3mcL (130-400); RED CELL DISTRIBUTION WIDTH 13.6 % (11.5-14.5)
[2019-06-02 20:56] LABS: CALCIUM 7.7 mg/dL (8.5-10.1); CARBON DIOXIDE 26.2 mmol/L (21-32); CREATININE SERUM 1.7 mg/dL (0.7-1.3); POTASSIUM SERUM 4.1 mmol/L (3.5-5.1)
[2019-06-02 21:03] LABS: ALBUMIN 2.5 g/dL (3.4-5.0); BILIRUBIN TOTAL 0.75 mg/dL (0.20-1.00); TOTAL PROTEIN, SERUM 5.6 g/dL (6.4-8.2)
[2019-06-02 22:56] VITALS: BP 185/93
== END 2019-06-02 22:56 | disposition home or self-care (01) ==
LOC: ED 17:12
PROVIDERS: Emergency Medicine
DX: R11.10 Vomiting, unspecified (principal); R10.13 Epigastric pain; I10 Essential (primary) hypertension; E11.40 Type 2 diabetes mellitus with diabetic neuropathy, unspecified
CPT/HCPCS: J1630; J2060; Q0092

== ENCOUNTER 2019-07-24 18:29 | Inpatient (IN) | payer OTHER ==
[~2019-07-24] VITALS: Ht 170.2 cm; Wt 62.6 kg
[2019-07-24 18:47] VITALS: Ht 170.2 cm; Wt 62.6 kg
[2019-07-24 19:16] LABS: BASOPHIL % 0.4 % (0-2); RED CELL DISTRIBUTION WIDTH 14.1 % (11.5-14.5)
[2019-07-24 19:18] LABS: PLATELET COUNT 406 x10^3mcL (130-400)
[2019-07-24 19:25] LABS: CALCIUM 8.4 mg/dL (8.5-10.1); CARBON DIOXIDE 23.8 mmol/L (21-32); CHLORIDE SERUM 105 mmol/L (98-107); GFR1 39 mL/min; GLUCOSE SERUM 268 mg/dL (74-106); POTASSIUM SERUM 3.7 mmol/L (3.5-5.1); SODIUM SERUM 139 mmol/L (136-145)
[2019-07-24 19:30] LABS: ALKALINE PHOSPHATASE 96 U/L (46-116); ALT/SGPT 24 U/L (16-63); AST/SGOT 12 U/L (15-37); BILIRUBIN TOTAL 0.44 mg/dL (0.20-1.00); CHOLESTEROL 174 mg/dL (<200); TOTAL PROTEIN, SERUM 6.8 g/dL (6.4-8.2)
[2019-07-24 19:31] LABS: ALBUMIN 2.8 g/dL (3.4-5.0)
[2019-07-24 19:38] LABS: microscopic required? YES; urine erythrocyte 2+ (NEGATIVE)
[2019-07-24 19:47] LABS: AMPHETAMINE QUAL UR NONE DETECTED (See below)
[2019-07-24] MEDS ORDERED: LASIX80 MG (21:53)
[2019-07-24 23:06] LABS: MAGNESIUM 2.4 mg/dL (1.8-2.4)
[2019-07-24 23:15] LABS: T3 TOTAL 0.84 ng/mL
[2019-07-24 23:18] LABS: FREE T4 1.16 ng/dL (0.76-1.46); T4(THYROXINE) 11.1 ug/dL (4.7-13.3)
[2019-07-24 23:25] VITALS: BP 192/97
[2019-07-25] VITALS (7 sets, daily range): BP systolic 166–180; BP diastolic 79–90
[2019-07-25 03:03] LABS: CALCIUM 7.4 mg/dL (8.5-10.1); CARBON DIOXIDE 24.8 mmol/L (21-32); CREATININE SERUM 2.2 mg/dL (0.7-1.3); POTASSIUM SERUM 3.4 mmol/L (3.5-5.1)
[2019-07-25 03:14] LABS: IRON 16 ug/dL (65-170); TOTAL IRON BINDING CAPACITY 235 ug/dL (250-450)
[2019-07-25 07:31] LABS: BASOPHIL % 0.9 % (0-2); PLATELET COUNT 315 x10^3mcL (130-400); RED CELL DISTRIBUTION WIDTH 14.1 % (11.5-14.5)
[2019-07-25 08:15] LABS: CARBON DIOXIDE 25.7 mmol/L (21-32); CREATININE SERUM 2.1 mg/dL (0.7-1.3); MAGNESIUM 2.5 mg/dL (1.8-2.4); PHOSPHOROUS 4.5 mg/dL (2.5-4.9); POTASSIUM SERUM 3.2 mmol/L (3.5-5.1)
[2019-07-26 06:23] LABS: BASOPHIL % 1.4 % (0-2); PLATELET COUNT 351 x10^3mcL (130-400)
[2019-07-26 06:30] VITALS: BP 177/90
[2019-07-26 06:44] LABS: CALCIUM 7.9 mg/dL (8.5-10.1); CARBON DIOXIDE 26.5 mmol/L (21-32); CREATININE SERUM 1.9 mg/dL (0.7-1.3); MAGNESIUM 2.6 mg/dL (1.8-2.4); PHOSPHOROUS 4.9 mg/dL (2.5-4.9); POTASSIUM SERUM 4.5 mmol/L (3.5-5.1)
[2019-07-26 06:49] LABS: RED CELL DISTRIBUTION WIDTH 14.6 % (11.5-14.5)
[2019-07-26 08:14] VITALS: BP 171/91
[2019-07-26 12:14] VITALS: BP 166/85
[2019-07-26 16:09] VITALS: BP 156/85
[2019-07-26 21:27] VITALS: BP 181/90
[2019-07-27 05:58] VITALS: BP 178/90
[2019-07-27 06:48] LABS: CALCIUM 7.9 mg/dL (8.5-10.1); CARBON DIOXIDE 24.7 mmol/L (21-32); CREATININE SERUM 2.2 mg/dL (0.7-1.3); MAGNESIUM 2.6 mg/dL (1.8-2.4); PHOSPHOROUS 4.6 mg/dL (2.5-4.9); POTASSIUM SERUM 4.8 mmol/L (3.5-5.1)
[2019-07-27 07:57] LABS: PLATELET COUNT 356 x10^3mcL (130-400); RED CELL DISTRIBUTION WIDTH 14.2 % (11.5-14.5)
[2019-07-27 08:16] VITALS: BP 182/98
[2019-07-27 11:48] VITALS: BP 116/77
[2019-07-27 16:09] VITALS: BP 149/92
[2019-07-27 21:44] VITALS: BP 194/97
[2019-07-27 22:44] VITALS: BP 157/89
[2019-07-28 02:02] VITALS: BP 164/85
[2019-07-28 06:32] VITALS: BP 140/77
[2019-07-28 07:55] LABS: BASOPHIL % 1.1 % (0-2); PLATELET COUNT 334 x10^3mcL (130-400); RED CELL DISTRIBUTION WIDTH 14.3 % (11.5-14.5)
[2019-07-28 08:31] VITALS: BP 161/84
[2019-07-28 08:35] LABS: CALCIUM 7.8 mg/dL (8.5-10.1); CARBON DIOXIDE 24.8 mmol/L (21-32); CREATININE SERUM 2.3 mg/dL (0.7-1.3); MAGNESIUM 2.7 mg/dL (1.8-2.4); PHOSPHOROUS 4.7 mg/dL (2.5-4.9); POTASSIUM SERUM 4.3 mmol/L (3.5-5.1)
[2019-07-28] MEDS ORDERED: CORE25 PO (11:12)
[2019-07-28] MEDS ORDERED: PRO10 PO (11:13)
[2019-07-28] MEDS ORDERED: ZES20 PO (11:13)
[2019-07-28] MEDS ORDERED: TYL325 PO (11:14)
[2019-07-28 12:15] VITALS: BP 116/62
[2019-07-28 13:50] VITALS: BP 116/62
[2019-07-28 14:41] VITALS: BP 162/89
== END 2019-07-28 15:17 | disposition home or self-care (01) | DRG 304 ==
LOC: ED 18:29 → DU 21:41
PROVIDERS: Internal Medicine; Specialist; ADMIT Internal Medicine
DX: I16.0 Hypertensive urgency (principal); N17.0 Acute kidney failure with tubular necrosis; J98.11 Atelectasis; F19.10 Other psychoactive substance abuse, uncomplicated; I12.9 Hypertensive chronic kidney disease with stage 1 through stage 4 chronic kidney disease, or unspecified chronic kidney disease; E11.22 Type 2 diabetes mellitus with diabetic chronic kidney disease; E11.65 Type 2 diabetes mellitus with hyperglycemia; N18.3 Chronic kidney disease, stage 3 (moderate); E11.319 Type 2 diabetes mellitus with unspecified diabetic retinopathy without macular edema; E87.6 Hypokalemia; D50.9 Iron deficiency anemia, unspecified; D63.1 Anemia in chronic kidney disease; R80.9 Proteinuria, unspecified; D47.3 Essential (hemorrhagic) thrombocythemia; F12.10 Cannabis abuse, uncomplicated; F41.9 Anxiety disorder, unspecified; H54.7 Unspecified visual loss; Z79.4 Long term (current) use of insulin; Z68.25 Body mass index [BMI] 25.0-25.9, adult
CPT/HCPCS: 36600; 82962; 84439; 87804; 94150; 97116-GP; G0378; G0480; J0360; J1815; J1885; J1940; J2060; J2270; J2405; J2765; J3010; J3490; Q0092

== ENCOUNTER 2019-08-07 10:45 | Inpatient (IN) | payer OTHER ==
[~2019-08-07] VITALS: Ht 170.2 cm; Wt 81.0 kg
[~2019-08-07 10:45] MED LIST changes: +CORE25 PO; +LASIX80 MG; +PRO10 PO; +TYL325 PO; +ZES20 PO
[2019-08-07 10:53] VITALS: Ht 170.2 cm; Wt 81.0 kg
--- NOTE | 2019-08-07 11:41 | NUR ---
AMBULATED TO ROOM 5, AWAITING MD MONGE.
--- NOTE | 2019-08-07 11:46 | NUR ---
AGENCY DOCUMENTATION DONE BY Staff Name/Title - : ROCKY WARE JR/ALESIA Reviews42 User ID - : [id number] Agency Name - : [employer] Time Documented - From - : 699 To - : 1929
--- NOTE | 2019-08-07 12:02 | NUR ---
ASSUMED PATIENT CARE, NURSING ASSESSMENT COMPLETED, SEEN AND EVALUATED BY SHAHZAD ROSALES COMPLETED.
[2019-08-07 12:07] LABS: BASOPHIL % 1.7 % (0-2); PLATELET COUNT 329 x10^3mcL (130-400); RED CELL DISTRIBUTION WIDTH 13.9 % (11.5-14.5)
[2019-08-07 13:03] LABS: BILIRUBIN TOTAL 0.23 mg/dL (0.20-1.00); CALCIUM 7.8 mg/dL (8.5-10.1); CARBON DIOXIDE 21.3 mmol/L (21-32); CREATININE SERUM 2.4 mg/dL (0.7-1.3); POTASSIUM SERUM 5.4 mmol/L (3.5-5.1)
[2019-08-07 13:06] LABS: ALBUMIN 2.4 g/dL (3.4-5.0); TOTAL PROTEIN, SERUM 6.1 g/dL (6.4-8.2)
--- NOTE | 2019-08-07 13:48 | NUR ---
ULTRASOUD TECH AT BEDSIDE.
--- NOTE | 2019-08-07 14:34 | NUR ---
DISPO AND MEDICAL DECISION MAKING, INPATIENT ADMISSION FOR FURTHER MANAGEMENT. PATIENT CARE REPORT ENDORSED TO ALESIA SANZ, CONTINUITY OF CARE ENDORSED. PATIENT UPDATED ACCORDINGLY.
--- NOTE | 2019-08-07 14:59 | NUR ---
[facility] ACCOMPANIED BY RN AND TRANSPORTER. PT A/A/O X 4, CALM, COOPERATIVE; C/O CONTINUOUS THROBBING H/A 05/30. GENERALIZED WEAKNESS, BUT ABLE TO AMBULATE W/ ASSIST IN WALKING FROM GURNEY TO BED W/ SLOW, STEADY GAIT; C/O CONTINUOUS GENERALIZED BODY TIGHTNESS/THROBBING PAIN 04/29 THAT IS EXACERBATED BY MOVEMENT, RELIEVED BY PAIN MEDICATIONS AND REST; FALL RISK PROTOCOL IN PLACE. ON TELE # 3, NSR, HR 64, DENIES CHEST PAIN OR DISCOMFORT AT THIS TIME. RHONDA RADIAL PULSES PRESENT, RHONDA PEDAL PULSES WEAK, ANASARCA, NOTED PITTING EDEMA +4 TO BLE, CAP REFILL < 3 SECS, SCD BY BEDSIDE. LUNGS DIM, CHEST RISING EVENLY, SHALLOW BREATHING, R/A, 95%, NO ACUTE RESPIRATORY DISTRESS NOTED. IV SITE LH 18G, CDI. ORIENTED PT TO ROOM, BED CONTROLS, CALL LIGHT SYSTEM. SIDE RAILS UP X 2, BED IN LOW POSITION. WILL ENDORSE TO ALESIA SANZ.
--- NOTE | 2019-08-07 15:19 | NUR ---
BS = 469; REPEATED BS = 499; 21 UNITS REGULAR INSULIN SQ GIVEN. SIOBHAN SKINNER NOTIFIED AT BED SIDE.
--- NOTE | 2019-08-07 15:26 | NUR ---
C/O LEG PAIN ON 04/29; NORCO 5/325 PO GIVEN AT 1331; DR. MCCANN AWARE OF. NEW ORDER OF NORCO 7.5/325 PO PER ORDER OF DR. MCCANN.
[2019-08-07 15:29] LABS: MAGNESIUM 2.5 mg/dL (1.8-2.4); PHOSPHOROUS 5.1 mg/dL (2.5-4.9)
[2019-08-07 15:39] LABS: CHOLESTEROL/HDL RATIO 1.7
[2019-08-07 15:58] VITALS: BP 181/89
--- NOTE | 2019-08-07 18:15 | NUR ---
PATIENT HAD NAUSEA AND VOMIT X1; 250CC OF VOMITUS COLLECTED. ZOFRAN 4MG IVP GIVEN.
--- NOTE | 2019-08-07 18:27 | NUR ---
ON FLUID RESTRCTION OF 1.2L/DAY. LASIX GIVEN IN ER AND AT 1730. VOID 1000 CC OF LIGHT YELLOW URINE SINCE ADMITION. NO SOB. ENDORSED CARE TO [facility] NURSE.
[2019-08-07 18:51] VITALS: BP 181/86
[2019-08-07 19:17] LABS: CALCIUM 8.2 mg/dL (8.5-10.1); CARBON DIOXIDE 22.3 mmol/L (21-32); CREATININE SERUM 2.3 mg/dL (0.7-1.3); PHOSPHOROUS 4.5 mg/dL (2.5-4.9)
[2019-08-07 19:45] VITALS: BP 133/74
--- NOTE | 2019-08-07 20:15 | NUR ---
PATIENT RECEIVED IN BED AWAKE,ALERT AND ORIENTED X4, SPEECH CLEAR, COMPLAINED OF [place] HEADACHE RATED AT 2/10, DENIED DIZZINESS. BREATHING EVEN AND UNLABORED BS CLEAR DIMINISHED BASES, FOUND ON ROOM AIR SAT 95%,DENIED SOB, NO COUGH. DENIED CHEST PAINS, HR=63BPM, TELE#23 NSR, RHYTHM REGULAR. HEPLOCK TO LEFT HAND PATENT AND INTACT SITE NO REDNESS, TAPE SECURED AND CAP LOCK. EDEMA TO BLE 2+, PULSES PALPABLE MODERATE. PATIENT VERBALIZED GENERALIZED WEAKNESS, NEEDS ANTICIPATED, ABLE TO TURN AND REPOSITIONED SELF IN BED INDEPENDENTLY. PATIENT INFORMED ABOUT POC THIS SHIFT. WILL CONTINUE TO MONITOR.
--- NOTE | 2019-08-07 20:24 | NUR ---
DR GALLEGO CALLED, INFORMED ABOUT K+,BUN AND CREAT RESULT , MD WILL COME SEE PATIENT IN AM.
--- NOTE | 2019-08-07 20:54 | NUR ---
PATIENT COMPLAINED THAT HE FEELS HIS BLOOD SUGAR IS LOW, CHECKED AND IT WAS 42 REPEATED WAS 44, REMAINED REPONSIVE BUT DROWSY, D50 1 AMP GIVEN IVP PER PROTOCOL AND INFORMED DR DOHERTY. WILL RE-CHECKED, GLASS OF OJ ALSO GIVEN AND WAS ABLE TO CONSUME IT WITHOUT DIFF. WILL RE-CHECKED BS.
--- NOTE | 2019-08-07 21:41 | NUR ---
RE-CHEKED BS AFTER 1 MP D50 GIVEN EARLIER, WAS 48/50,PATIENT DRWOSY BUT AROUSABLE AND ANSWERING QUESTIONS APPROPRIATELY. DR RUELAS MADE AWARE ABOUT RE-CHECK POST ABOVE INTERVENTION, MD ORDER TO GIVE ANOTHER 1 AMP D50 AND APPLE JUICE IF PATIENT CAN TOLERATED DRINKING FLUIDS.
--- NOTE | 2019-08-07 22:30 | NUR ---
BS RE-CHECKED WAS 95 PATIENT FEELING BETTER STATED. WILL CONTINUE TO MONITOR.
[2019-08-07 23:35] LABS: microscopic required? YES; urine erythrocyte 2+ (NEGATIVE)
--- NOTE | 2019-08-07 23:52 | NUR ---
PATIENT CALLED AND STATED FEELING BLOOD SUGAR IS LOW, PATIENT CHECKED, LETHARGIC BUT AROUSABLE AND ANSWERING QUESTIONS APPROPRIATELY, CHEKED BS WAS 58 AND REPEATED WAS 59, DR RUELAS MADE AWARE AND PROTOOL INITIATED, D50 1 AMP GIVEN IVP. 1 GLASS OF OG GIVEN ABLE TO DRINK IT WITHOUT DIFF.
--- NOTE | 2019-08-08 00:25 | NUR ---
RE-CHECKED BS AFTER INTERVENTION WA 144. PATIENT STATED FEELING BETTER.
--- NOTE | 2019-08-08 02:11 | NUR ---
CHECKED BS WAS 204.
--- NOTE | 2019-08-08 05:39 | NUR ---
COMPLAINED OF THROBBING HEADACHE AND FEELING NAUSEOUS, MEDICATED PRN. PATIENT ALSO REFUSED INSULIN COVERAGE FOR BS 189. WILL NOTIFY MD AND CN.
--- NOTE | 2019-08-08 05:49 | NUR ---
PAGE GATE SEND TO DR DOHERTY INFORMED HER THAT PATIENT REFUSED INSULIN COVERAGE CHRISTEN BS 189.
[2019-08-08 06:06] VITALS: BP 106/48
--- NOTE | 2019-08-08 06:06 | NUR ---
PATIENT SLEPT OFF AND ON DURING THE SHIFT. COMPLIANT WITH FLUID RESTRICTION, PATIENT HAD BEEN COVERED WITH D50 1 AMP 3X FOR LOW BLOOD SUGAR, AWARE AND CN AWARE,DR DOHERTY HERE IN [place] AND INFORMED HER THAT PATIENT REFUSED INSULIN COVERAGE PER SLIDING SCALE THIS AM FOR QG=017. MEDICATED EARLIER WITH NORCO FOR COMPLAINT OF HEADACHE AND PAIN THIS TIME IS SLOWLY SUBSIDING AND NAUSEA IS ALSO SUBSIDING. HEPLOCK TO LEFT HAND PATENT AND INTACT FLUSHED WELL. SAFETY/FALL PRECAUTIONS OBSERVED AND MAINTAINED. WILL ENDORSE CONTINUITY OF CARE TO INCOMING NURSE.
[2019-08-08 07:09] LABS: BASOPHIL % 0.1 % (0-2); PLATELET COUNT 303 x10^3mcL (130-400)
--- NOTE | 2019-08-08 07:10 | NUR ---
RECIEVED PT RESTING IN BED WITH NO C/O PAIN OR DISTRESS. A/O X4 WITH NO PORTER OR DIZZINESS. TELE# 23 CONNECTED TO PT, DENIES CP OR PRESSURE. LUNGS CTAB. NO SOB NOTED. STRICT I/O OF 1.2L/DAY. IV IN LEFT HAND INTACT AND PATENT WITH NO REDNESS OR INFLAMMATION NOTED. SAFETY PRECAUTIONS IN PLACE, CALL LIGHT WITHIN REACH, WILL MONITOR.
[2019-08-08 07:20] LABS: CALCIUM 7.9 mg/dL (8.5-10.1); CARBON DIOXIDE 22.6 mmol/L (21-32); CREATININE SERUM 2.5 mg/dL (0.7-1.3); MAGNESIUM 2.3 mg/dL (1.8-2.4); PHOSPHOROUS 5.4 mg/dL (2.5-4.9); POTASSIUM SERUM 4.8 mmol/L (3.5-5.1)
--- NOTE | 2019-08-08 07:23 | NUR ---
BEDSIDE HANDSOFF REPORT AND INTRODUCTION PERFORMED WITH [id number] NURSE COLLAZO-ALESIA.
[2019-08-08 09:30] VITALS: BP 125/68
--- NOTE | 2019-08-08 10:15 | NUR ---
PT STABLE WITH NO C/O PAIN OR DISTRESS. SAFETY PRECAUTIONS IN PLACE, CALL LIGHT WITHIN REACH, WILL MONITOR.
[2019-08-08 12:53] VITALS: BP 96/44
--- NOTE | 2019-08-08 15:13 | NUR ---
IV FROM LEFT HAND REMOVED WITH CATHETER INTACT D/T PT C/O PAIN AT SITE. NEW IV STARTED IN RIGHT HAND 22GUAGE. NO REDNESS OR INFLAMMATION NOTED TO BOTH SITES.
[2019-08-08 15:20] VITALS: BP 112/55
[2019-08-08 17:18] VITALS: BP 116/57
--- NOTE | 2019-08-08 19:00 | NUR ---
PT RESTING IN BED WITH NO C/O PAIN OR DISTRESS. A/O X4 WITH NO PORTER OR DIZZINESS NOTED. TELE# 23 CONNECTED TO PT, DENIES CP OR PRESSURE. LUNGS CTAB. NO SOB NOTED. STRICT I/O OF 1.2L/DAY. IV IN RIGHT HAND INTACT AND PATENT WITH NO REDNESS OR INFLAMMATION NOTED. SAFETY PRECAUTIONS IN PLACE, CALL LIGHT WITHIN REACH, WILL ENDORASE TO NIGHT NURSE.
--- NOTE | 2019-08-08 19:35 | NUR ---
SHIFT REASSESSMENT DONE.PATIENT ALERT AND OREINTED.NOT IN RESP DITRESS.FINE CRACKLES.GEN WEAKNESS.R HAND HEPLOCK INTACT.TELE 23 SR.STRICT I AND O,URINAL AT BEDSIDE.CALL LIGHT IN REACH.
[2019-08-08 20:48] VITALS: BP 136/69
--- NOTE | 2019-08-08 20:51 | NUR ---
ALL MEDS GIVEN,SWALLOWS WELL.HS SNACK GIVEN,BLOOD SUGAR 215,6 UNITS RISS.
--- NOTE | 2019-08-08 21:51 | NUR ---
WANTED HIS SUGAR CHECKED,MAYBE IT IS LOW,HAD 6 UNITS RISS EARLIER.SAYS HE CANNOT HEAR ANYTHING,CHARGE NURSE AWARE.
--- NOTE | 2019-08-08 21:51 | NUR ---
BLOOD SUGAR 281.
--- NOTE | 2019-08-09 01:49 | NUR ---
PATIENT IS BOTHERED BY PATIENT NOISE NEXT DOOR.WANTED AND EARPLUG AND GIVEN.
[2019-08-09 05:29] VITALS: BP 130/61
--- NOTE | 2019-08-09 06:05 | NUR ---
BLOOD SUGAR 340,RISS 12 UNITS.AM MEDS GIVEN.NO INCIDENT,WAS WORRIED LAST NIGHT,THAT HAS EPISODE OF NOT HEARING WHAT IM SAYING,GOIING DEAF.BUT HEARING WELL NOW.WILL ENDORSE TO NEXT SHIFT.HEPLOCK INTACT.
[2019-08-09 06:29] LABS: BASOPHIL % 0.8 % (0-2); PLATELET COUNT 302 x10^3mcL (130-400); RED CELL DISTRIBUTION WIDTH 14.4 % (11.5-14.5)
[2019-08-09 06:38] LABS: CALCIUM 7.5 mg/dL (8.5-10.1); CARBON DIOXIDE 20.7 mmol/L (21-32); MAGNESIUM 2.2 mg/dL (1.8-2.4); PHOSPHOROUS 5.5 mg/dL (2.5-4.9); POTASSIUM SERUM 5.1 mmol/L (3.5-5.1)
--- NOTE | 2019-08-09 07:20 | NUR ---
RECEIVED PT FROM QUESTIONED DOCUMENTS EXAMINER ALESIA. Cristhian/NICO. TELE#23. DENIES CHEST PAIN/PRESSURE. RESPIRATIONS EQUAL AND UNLABORED ON RA. DENIES SOB. PT C/O PAIN TO BLE 6/10 PRESSURE. PT STATES "I AM SWOLLEN AND ITS PAINFUL." PT DENIES ANY N/V. IV TO RH SALINE LOCKED. NO REDNESS OR SWELLING NOTED. WILL CONTINUE TO MONITOR. CALL LIGHT IN REACH. BED IN LOWEST POSITION.
--- NOTE | 2019-08-09 09:11 | NUR ---
PT SITTING UP IN BED. NO ACUTE RESP DISTRESS NOTED ON RA. DENIES SOB. GIVEN PO MEDS. TOLERATED WELL. BLOOD PRESSURE CHECKED WAS 150/81, HR 75. IV TO RH SALINE LOCKED. FLUSHED WELL. NO REDNESS OR SWELLING NOTED. PT C/O PAIN 6/10 GENERALIZED BODY PAIN. PT ASKING FOR STRONG PAIN MEDICATION. EXPLAINED TO PT WILL NEED TO TALK TO THE DOCTOR AND IT MAY TAKE SOMETIME. PT STATES "JUST GIVE ME WHAT I HAVE AVAILABLE. I DONT WANT TO WAIT." MEDICATED PER EMAR. WILL CONTINUE TO MONITOR. CALL LIGHT IN REACH. BED IN LOWEST POSITION.
[2019-08-09 09:45] VITALS: BP 118/57
[2019-08-09] MEDS ORDERED: PRO10 PO (11:10)
[2019-08-09] MEDS ORDERED: FUROSEMIDE40 MG PO (11:11)
[2019-08-09] MEDS ORDERED: REG10I PO (11:12)
--- NOTE | 2019-08-09 11:44 | NUR ---
PT SITTING UP IN BED. NO ACUTE RESP DISTRESS NOTED ON RA. PT DENIES ANY N/V AT THIS TIME. PT MADE AWARE OF DISCHARGE ORDER. ASKED PT IF HE HAS ANYONE WHO WOULD BE ABLE TO PICK HIM UP. PT STATES "I CAN CALL MY MOM. I DONT FEEL GOOD RIGHT NOW. I FEEL LIKE I HAVE A FEVER." PT TEMPERATURE CHECKED WAS 97.7. PT STATES "I WILL LET YOU KNOW WHEN I FEEL BETTER AND OKAY TO LEAVE." SPOKE WITH DR. MCCANN MADE AWARE. PER DR. MCCANN OKAY FOR PT TO BE DISCHARGED AROUND 5 TO 6 PM. WILL CONTINUE TO MONITOR. CALL LIGHT IN REACH. BED IN LOWEST POSITION.
--- NOTE | 2019-08-09 12:03 | NUR ---
PT SITTING UP IN BED. NO ACUTE RESP DISTRESS NOTED ON RA. PT DENIES ANY PAIN AT THIS TIME. BLOOD SUGAR CHECKED WAS 309. GIVEN 12 UNITS OF REGULAR INSULIN PER SLIDING SCALE. GIVEN PO MEDS. TOELRATED WELL. PT STATES "I JUST WANT TO EAT LUNCH AND GET SOME REST. AFTER I SHOULD FEEL BETTER TO GO HOME." WILL CONTINUE TO MONITOR. CALL LIGHT IN REACH. BED IN LOWEST POSITION.
[2019-08-09] MEDS ORDERED: REG5 PO (12:09)
[2019-08-09 12:16] VITALS: BP 118/57
--- NOTE | 2019-08-09 13:23 | NUR ---
PT SITTING UP AT BEDSIDE. PT READY TO BE DISCHARGED. PT GIVEN DISCHARGE INSTRUCTIONS. PT ENCOURAGED TO FOLLOW A DIABETIC DIET AND LIMIT SALT INTAKE. PT STATES "I HAVE ALREADY STARTED TO DECREASE HOW MUCH SALT I TAKE AT HOME." PT ENCOURAGED TO FOLLOW FLUIDS RESTRICTION OF 1.5L PER DAY. PT VERBALIZED UNDERSTANDING. PT INFORMED OF NEW MEDICATIONS SENT TO PT PHARMACY [facility] IN [place]. PT INFORMED TO STOP TAKING LASIX 80 MG AT HOME AND TAKE LASIX 40 MG PO BID. PT VERBALIZED UNDERSTANDING. PT INFORMED TO STOP TAKING HIS LISINOPRIL. PT NOTIFIED OF RENEWAL PRESCRIPTION FOR PROCARDIA SENT TO HIS PHARMACY. PT PROVIDED EDUCATION ON CHF AND EDEMA. PT ENCOURAGED TO FOLLOW UP WITH PCP WITHIN 2 TO 3 DAYS OF DISCHARGE. PT VERBALIZED UNDERSTANDING. PT ENCOURAGED TO RETURN TO ER OR CALL PCP IF ANY WORSENING SYMPTOMS OF SHORTNESS OF BREATH, SWELLING, FEVER, NAUSEA OR VOMITING. PT VERBALIZED UNDERSTANDING. IV TO RH REMOVED CATHETER INTACT. NO REDNESS OR SWELLING NOTED. TELE# 23 RETURNED TO MANAGER BOOK. PT TAKEN OFF FLOOR VIA WHEELCHAIR.
[2019-08-10] MEDS ORDERED: FUROSEMIDE40 MG PO (15:51)
[2019-08-10] MEDS ORDERED: REG5 PO (15:51)
== END 2019-08-09 13:36 | disposition home or self-care (01) | DRG 291 ==
LOC: ED 10:45 → DU 13:53
PROVIDERS: Emergency Medicine; General Practice; ADMIT Internal Medicine
DX: I13.0 Hypertensive heart and chronic kidney disease with heart failure and stage 1 through stage 4 chronic kidney disease, or unspecified chronic kidney disease (principal); I50.33 Acute on chronic diastolic (congestive) heart failure; E43 Unspecified severe protein-calorie malnutrition; E87.1 Hypo-osmolality and hyponatremia; N18.3 Chronic kidney disease, stage 3 (moderate); E11.22 Type 2 diabetes mellitus with diabetic chronic kidney disease; E87.5 Hyperkalemia; D64.9 Anemia, unspecified; E11.40 Type 2 diabetes mellitus with diabetic neuropathy, unspecified; E11.65 Type 2 diabetes mellitus with hyperglycemia; E11.319 Type 2 diabetes mellitus with unspecified diabetic retinopathy without macular edema; E83.39 Other disorders of phosphorus metabolism; E83.51 Hypocalcemia; F12.90 Cannabis use, unspecified, uncomplicated; Z79.899 Other long term (current) drug therapy; Z79.4 Long term (current) use of insulin; Z83.3 Family history of diabetes mellitus; Z82.49 Family history of ischemic heart disease and other diseases of the circulatory system; Z87.891 Personal history of nicotine dependence; Z68.27 Body mass index [BMI] 27.0-27.9, adult
CPT/HCPCS: 36600; 82962; 83880; C9113; G0378; J1815; J1940; J2405; J2765; J3490; Q0092

== ENCOUNTER 2020-01-04 12:57 | Emergency (ER) | payer OTHER ==
[~2020-01-04] VITALS: Ht 172.7 cm; Wt 72.6 kg
[~2020-01-04 12:57] MED LIST changes: +FUROSEMIDE40 MG PO; +REG10I PO; +REG5 PO
[2020-01-04 13:07] VITALS: Ht 172.7 cm; Wt 72.6 kg
[2020-01-04 14:33] LABS: BASOPHIL % 0.4 % (0-2); PLATELET COUNT 222 x10^3mcL (130-400)
[2020-01-04 14:34] LABS: RED CELL DISTRIBUTION WIDTH 16.4 % (11.5-14.5)
[2020-01-04 14:49] LABS: CALCIUM 8.3 mg/dL (8.5-10.1); CARBON DIOXIDE 29.8 mmol/L (21-32); CREATININE SERUM 3.4 mg/dL (0.7-1.3); POTASSIUM SERUM 3.4 mmol/L (3.5-5.1)
[2020-01-04 14:53] LABS: BILIRUBIN TOTAL 0.6 mg/dL (0.20-1.00)
[2020-01-04 14:54] LABS: ALBUMIN 2.7 g/dL (3.4-5.0); TOTAL PROTEIN, SERUM 6.1 g/dL (6.4-8.2)
[2020-01-04 16:27] VITALS: BP 177/78
== END 2020-01-04 16:27 | disposition home or self-care (01) ==
LOC: ED 12:57
PROVIDERS: Emergency Medicine
DX: K31.84 Gastroparesis (principal); E11.40 Type 2 diabetes mellitus with diabetic neuropathy, unspecified; R11.15 Cyclical vomiting syndrome unrelated to migraine; E11.22 Type 2 diabetes mellitus with diabetic chronic kidney disease; I12.0 Hypertensive chronic kidney disease with stage 5 chronic kidney disease or end stage renal disease; N18.6 End stage renal disease; Z99.2 Dependence on renal dialysis
CPT/HCPCS: J0360; J1200; J2060; J2765; Q0092